=== PATIENT | male | born 1965 | race African-American/Black ===

== ENCOUNTER 2016-11-04 17:23 | Emergency (ER) | payer MEDICAID ==
[~2016-11-04] VITALS: Ht 172.7 cm; Wt 75.7 kg
[~2016-11-04 17:23] MED LIST: ALBUTEROL SULF8.5 GM INH; ATORVASTATIN CA10 MG ORAL; COLACE100 MG ORAL; DILANTIN100 MG ORAL; GLUCOPHAGE1000 MG ORAL; IBUPROFEN600 MG ORAL; JANUVIA50 MG ORAL; KEFLEX500 MG ORAL; LEVEMIR FL100 UNIT/1 SUBQ; METFORMIN HCL500 M1 ORAL; NAPROSYN500 M1 ORAL; NKM; NORCO 5-325 TA1 EACH ORAL; NOVOLOG100 UNITS1 SUBQ; PLAVIX75 MG ORAL; ROBAXIN-750750 MG PO; SENNA8.6 M3 PO; SEROQUEL25 MG ORAL; ZESTRIL10 M1 ORAL
[2016-11-04 17:39] VITALS: BP 123/69
--- NOTE | 2016-11-04 17:40 | Emergency Room Report ---
History of Present Illness General Chief Complaint: Pain Source: Patient Present Illness HPI Patient is a 51-year-old male presented after having increased diarrhea for the past 3 days. The patient reports having increased left-sided weakness. Patient reports having some difficulty with moving his left hand. Patient prior history of similar type symptoms. Had patient stated that he had onset of weakness about 3 hours ago. I have seen this patient several times in the past with similar complaints and intervals and history. Allergies: Coded Allergies: ACETAMINOPHEN (Unverified Allergy, Unknown, 04/02/15) IBUPROFEN (Unverified Allergy, Unknown, 12/04/14) KETOROLAC (Unverified Allergy, Unknown, 12/04/14) Patient History Past Medical History: see triage record Reviewed Nursing Documentation: PMH: Agreed, PSxH: Agreed Nursing Documentation-PMH Past Medical History: No History, Except For Hx Cardiac Problems: No Hx Hypertension: Yes Hx Pacemaker: No Hx Asthma: Yes Hx COPD: No Hx Diabetes: No Hx Cancer: No Hx Gastrointestinal Problems: No Hx Dialysis: No Hx Neurological Problems: No Hx Cerebrovascular Accident: Yes - 2-3 YRS AGO Hx Seizures: No Hx Weakness: Yes - right sided Review of Systems All Other Systems: negative except mentioned in HPI Physical Exam Vital Signs Date Time Temp Pulse Resp B/P Pulse Ox O2 Delivery O2 Flow Rate FiO2 11/04/16 17:33 97.0 91 19 98 Room Air Sp02 EP Interpretation: reviewed, normal General Appearance: normal inspection, well appearing, no apparent distress, alert, GCS 15 Head: atraumatic ENT: normal ENT inspection, hearing grossly normal, normal voice Neck: normal inspection, full range of motion, supple, no bony tend Respiratory: normal inspection, lungs clear, normal breath sounds, no respiratory distress, no retraction, no wheezing Cardiovascular #1: regular rate, rhythm, no edema Gastrointestinal: normal inspection, normal bowel sounds, non tender, soft, no guarding, no hernia Genitourinary: no CVA tenderness Musculoskeletal: normal inspection, back normal, normal range of motion Neurologic: normal inspection, alert, oriented x3, responsive, calculation reviewer III-XII nml as tested, motor strength/tone normal, speech normal Psychiatric: normal inspection, judgement/insight normal, mood/affect normal Skin: normal inspection, normal color, no rash Medical Decision Making Diagnostic Impression: Primary Impression: Diabetes mellitus Additional Impressions: Chronic pain Opioid dependence Dehydration ER Course The patient presented for weakness.Patient presented for generalized weakness. Differential diagnosis included was not limited to anemia, urinary tract infection, CVA, electrolyte abnormality, hypothyroidism, myocardial infarction , myasthenia gravis, dehydration, among others. Because of complexity of patient 's case laboratory testing and imaging studies were ordered.Patient was noted to have elevated blood sugar and was given oral metformin and as well as subcutaneous insulin. The patient had improvement in his blood sugar. The patient is advised to follow up with primary care doctor in 1-2 days. Patient is advised to return if any worsening condition or if any changes in status that are concerning. Labs Test 11/04/16 17:55 White Blood Count 5.4 K/UL (4.8-10.8) Red Blood Count 4.59 M/UL (4.70-6.10) Hemoglobin 12.4 G/DL (14.2-18.0) Hematocrit 38.2 % (42.0-52.0) Mean Corpuscular Volume 83 FL (80-99) Mean Corpuscular Hemoglobin 27.1 PG (27.0-31.0) Mean Corpuscular Hemoglobin Concent 32.6 G/DL (32.0-36.0) Red Cell Distribution Width 13.3 % (11.6-14.8) Platelet Count 175 K/UL (150-450) Mean Platelet Volume 5.9 FL (6.5-10.1) Neutrophils (%) (Auto) 45.3 % (45.0-75.0) Lymphocytes (%) (Auto) 39.9 % (20.0-45.0) Monocytes (%) (Auto) 11.7 % (1.0-10.0) Eosinophils (%) (Auto) 1.1 % (0.0-3.0) Basophils (%) (Auto) 2.1 % (0.0-2.0) Sodium Level 135 mEQ/L (135-145) Potassium Level 4.1 mEQ/L (3.4-4.9) Chloride Level 97 mEQ/L (98-107) Carbon Dioxide Level 21 mEQ/L (20-30) Anion Gap 17 (5-15) Blood Urea Nitrogen 8 mg/dL (7-23) Creatinine 0.8 mg/dL (0.7-1.2) Estimat Glomerular Filtration Rate > 60 mL/min (>60) Glucose Level 504 mg/dL (74-106) Calcium Level 8.7 mg/dL (8.6-10.2) Total Bilirubin < 0.2 mg/dL (0.0-1.2) Aspartate Amino Transf (AST/SGOT) 14 U/L (5-40) Alanine Aminotransferase (ALT/SGPT) 20 U/L (3-41) Alkaline Phosphatase 121 U/L (40-129) Troponin I < 0.30 ng/mL (<=0.30) Total Protein 6.0 g/dL (6.6-8.7) Albumin 3.4 g/dL (3.5-5.2) Globulin 2.6 g/dL Albumin/Globulin Ratio 1.3 (1.0-2.7) Lipase 49 U/L (< 60) Phenytoin (Dilantin) Level < 0.8 ug/mL (10-20) Last Vital Signs Date Time Temp Pulse Resp B/P Pulse Ox O2 Delivery O2 Flow Rate FiO2 11/04/16 17:33 97.0 91 19 98 Room Air Status: improved Disposition: HOME, SELF-CARE Condition: Stable Scripts Gabapentin* (NEURONTIN*) 400 Mg Capsule 400 MG ORAL TWICE A DAY, #30 CAP Prov: Eddie Capps 11/04/16 Eddie Capps Nov 04, 2016 17:40
[2016-11-04] MEDS ORDERED: Loperamide 2mg cap ORAL ONE (17:45)
[2016-11-04 18:05] LABS: BASOPHILS % (AUTO) 2.1 % (0.0-2.0); EOSINOPHILS % (AUTO) 1.1 % (0.0-3.0); LYMPHOCYTES % (AUTO) 39.9 % (20.0-45.0); MEAN CORPUSCULAR HEMOGLOBIN 27.1 PG (27.0-31.0); MEAN CORPUSCULAR HGB CONC 32.6 G/DL (32.0-36.0); MEAN CORPUSCULAR VOLUME 83 FL (80-99); MEAN PLATELET VOLUME 5.9 FL (6.5-10.1); MONOCYTES % (AUTO) 11.7 % (1.0-10.0); NEUTROPHILS % (AUTO) 45.3 % (45.0-75.0); PLATELET COUNT 175 K/UL (150-450); RED BLOOD COUNT 4.59 M/UL (4.70-6.10); RED CELL DISTRIBUTION WIDTH 13.3 % (11.6-14.8); WHITE BLOOD COUNT 5.4 K/UL (4.8-10.8)
[2016-11-04 18:31] LABS: TROPONIN I < 0.30 ng/mL (<=0.30)
[2016-11-04 18:39] LABS: ALANINE AMINOTRANSFERASE 20 U/L (3-41); ALBUMIN/GLOBULIN RATIO 1.3 (1.0-2.7); ANION GAP 17 (5-15); ASPARTATE AMINO TRANSFERASE 14 U/L (5-40); CALCIUM 8.7 mg/dL (8.6-10.2); CARBON DIOXIDE 21 mEQ/L (20-30); CHLORIDE 97 mEQ/L (98-107); CREATININE 0.8 mg/dL (0.7-1.2); GLOMERULAR FILTRATION RATE > 60 mL/min (>60); HEMOLYSIS 6; LIPASE 49 U/L (< 60); POTASSIUM 4.1 mEQ/L (3.4-4.9); SODIUM 135 mEQ/L (135-145)
[2016-11-04] MEDS ORDERED: NEURONTIN400 MG ORAL (18:44)
[2016-11-04] MEDS ORDERED: metFORMIN 500mg tab ORAL SCH (19:00)
[2016-11-04 19:25] VITALS: BP 132/73
[2016-11-04 19:39] VITALS: BP 132/73
--- NOTE | 2016-11-05 12:16 | Cardiology Report ---
APPROVED REPORT EKG Measurement Heart [id number] Normal sinus rhythm Possible Left atrial enlargement Borderline ECG
== END 2016-11-04 19:40 | disposition home or self-care (01) ==
LOC: EMR 17:45
DX: R19.7 Diarrhea, unspecified (principal); R53.1 Weakness; Z88.6 Allergy status to analgesic agent; Z88.8 Allergy status to other drugs, medicaments and biological substances; I10 Essential (primary) hypertension; J45.909 Unspecified asthma, uncomplicated; Z86.73 Personal history of transient ischemic attack (TIA), and cerebral infarction without residual deficits; E11.9 Type 2 diabetes mellitus without complications; G89.29 Other chronic pain; F11.20 Opioid dependence, uncomplicated; E86.0 Dehydration
CPT/HCPCS: 36415; 80053; 80185; 83690; 84484; 85025; 93005; 96372; 99283; J1815

== ENCOUNTER → 2017-01-02 | Emergency (ER) | payer MEDICAID ==
[~2017-01-02] VITALS: Ht 172.7 cm; Wt 74.8 kg
[~2017-01-02] MED LIST changes: +NEURONTIN400 MG ORAL
[2017-01-02 14:35] VITALS: BP 120/71
[2017-01-02 15:40] LABS: APPEARANCE,URINE CLEAR; KETONES,URINE NEGATIVE (NEGATIVE); LEUKOCYTE ESTERASE ,URINE NEGATIVE (NEGATIVE); NITRITE,URINE NEGATIVE (NEGATIVE); PH,URINE 6 (4.5-8.0); PROTEIN,URINE 2+ (NEGATIVE); UROBILINOGEN,URINE 1 MG/DL (0.0-1.0)
[2017-01-02 15:55] LABS: RBC,URINE 0-2 /HPF (0 - 0); WBC,URINE 0-2 /HPF (0 - 0)
[2017-01-02 15:56] LABS: BACTERIA,URINE OCCASIONAL /HPF
--- NOTE | 2017-01-02 21:49 | Emergency Room Report ---
History of Present Illness General Chief Complaint: Pain Source: Patient Present Illness HPI 51 YO male presents emergency department complaining of 10 out of 10 in severity localized left sided flank pain and yesterday. Patient states it feels as though someone is consistently punching him. Patient reports significant tenderness denies fall or trauma. Patient denies abdominal pain nausea, vomiting, fevers, chills, hematuria, dysuria. Patient states the pain is localized it does not migrate. Patient denies bruising, erythema or rash. Pt states pain is exacerbated with drinking water. denies strenuous activities. Patient denies taking medication for his pain states she has multiple allergies. Denies numbness tingling or loss of sensation or gross motor movements of the extremities, incontinence of bowel or bladder. Denies CP, Palpitations, LOC, AMS, dizziness, Changes in Vision, Sensation, paresthesias, or a sudden severe headache. Allergies: Coded Allergies: ACETAMINOPHEN (Unverified Allergy, Unknown, 04/02/15) IBUPROFEN (Unverified Allergy, Unknown, 12/04/14) KETOROLAC (Unverified Allergy, Unknown, 12/04/14) Patient History Past Medical History: see triage record Past Surgical History: none Pertinent Family History: none Reviewed Nursing Documentation: PMH: Agreed, PSxH: Agreed Nursing Documentation-PMH Past Medical History: No History, Except For Hx Cardiac Problems: No Hx Hypertension: Yes Hx Pacemaker: No Hx Asthma: Yes Hx COPD: No Hx Diabetes: No Hx Cancer: No Hx Gastrointestinal Problems: No Hx Dialysis: No Hx Neurological Problems: No Hx Cerebrovascular Accident: Yes - 2-3 YRS AGO Hx Seizures: No Hx Weakness: Yes - right sided Review of Systems All Other Systems: negative except mentioned in HPI Physical Exam Vital Signs Date Time Temp Pulse Resp B/P Pulse Ox O2 Delivery O2 Flow Rate FiO2 01/02/17 14:35 98.6 82 15 120/71 95 Room Air Sp02 EP Interpretation: reviewed, normal General Appearance: no apparent distress, alert, GCS 15, non-toxic Head: normocephalic, atraumatic Eyes: bilateral eye PERRL, bilateral eye normal inspection ENT: hearing grossly normal, normal pharynx, no angioedema, normal voice Neck: full range of motion, supple/symm/no masses Respiratory: lungs clear, normal breath sounds, speaking full sentences Cardiovascular #1: regular rate, rhythm, no edema Gastrointestinal: normal bowel sounds, non tender, soft, non-distended, no guarding, no rebound Rectal: deferred Genitourinary: normal inspection, no CVA tenderness Musculoskeletal: back normal, gait/station normal, normal range of motion, tender - superficial ttp to light palpation of the left lower flank/rib area, no obvious deformities, no bruising, no erythema Neurologic: alert, oriented x3, responsive, motor strength/tone normal, sensory intact, speech normal Skin: normal color, no rash, warm/dry, well hydrated Medical Decision Making PA Attestation Dr. Capps is my supervising Physician whom patient management has been discussed with. Diagnostic Impression: Primary Impression: eloped ER Course 51 YO male presents emergency department complaining of 10 out of 10 in severity localized left sided flank pain and yesterday. Patient states it feels as though someone is consistently punching him. Patient reports significant tenderness denies fall or trauma. Patient denies abdominal pain nausea, vomiting, fevers, chills, hematuria, dysuria. Patient states the pain is localized it does not migrate. Patient denies bruising, erythema or rash. Patient denies taking medication for his pain states she has multiple allergies. Ddx considered but are not limited to Diverticulitis, acute appy, diarrhea,UC, PUD, GE, pancreatitis, gallstone, kidney stone, pyelonephritis, UTI, obstruction. Vital signs: are WNL, pt. is afebrile H&PE are most consistent with possible muscle strain due to superficial ttp to light palpation. ORDERS: - UA: Pending ED INTERVENTIONS: -- Pt declines Aspirin PO DISPOSITION: PT. ELOPED Labs Test 01/02/17 15:19 Urine Color Yellow Urine Appearance Clear Urine pH 6 (4.5-8.0) Urine Specific [place] 1.015 (1.005-1.035) Urine Protein 2+ (NEGATIVE) Urine Glucose (UA) 4+ (NEGATIVE) Urine Ketones Negative (NEGATIVE) Urine Occult Blood Negative (NEGATIVE) Urine Nitrite Negative (NEGATIVE) Urine Bilirubin Negative (NEGATIVE) Urine Urobilinogen 1 MG/DL (0.0-1.0) Urine Leukocyte Esterase Negative (NEGATIVE) Urine RBC 0-2 /HPF (0 - 0) Urine WBC 0-2 /HPF (0 - 0) Urine Squamous Epithelial Cells None /LPF (NONE/OCC) Urine Bacteria Occasional /HPF (NONE) Last Vital Signs Date Time Temp Pulse Resp B/P Pulse Ox O2 Delivery O2 Flow Rate FiO2 01/02/17 14:35 98.6 82 15 120/71 95 Room Air Disposition: ELOPED Condition: Unknown Referrals: NON PHYSICIAN (PCP) Corinne Carroll Jan 02, 2017 21:49
== END | disposition left against medical advice (07) ==
LOC: EMR 14:51
DX: R10.9 Unspecified abdominal pain (principal); I10 Essential (primary) hypertension; J45.909 Unspecified asthma, uncomplicated; Z86.73 Personal history of transient ischemic attack (TIA), and cerebral infarction without residual deficits; Z88.6 Allergy status to analgesic agent
CPT/HCPCS: 81003; 99282

== ENCOUNTER 2017-04-13 19:59 | Emergency (ER) | payer MEDICAID ==
[~2017-04-13] VITALS: Ht 172.7 cm; Wt 75.7 kg
[2017-04-13 21:11] LABS: EOSINOPHILS % (AUTO) 1.1 % (0.0-3.0); LYMPHOCYTES % (AUTO) 38.1 % (20.0-45.0); MEAN CORPUSCULAR HEMOGLOBIN 27.6 PG (27.0-31.0); MEAN CORPUSCULAR HGB CONC 32.5 G/DL (32.0-36.0); MEAN CORPUSCULAR VOLUME 85 FL (80-99); MEAN PLATELET VOLUME 6.6 FL (6.5-10.1); MONOCYTES % (AUTO) 7.1 % (1.0-10.0); NEUTROPHILS % (AUTO) 52.7 % (45.0-75.0); PLATELET COUNT 218 K/UL (150-450); RED BLOOD COUNT 4.77 M/UL (4.70-6.10); RED CELL DISTRIBUTION WIDTH 12.8 % (11.6-14.8); WHITE BLOOD COUNT 5.5 K/UL (4.8-10.8)
[2017-04-13 21:21] LABS: ALANINE AMINOTRANSFERASE 15 U/L (3-41); ALBUMIN/GLOBULIN RATIO 1.3 (1.0-2.7); ANION GAP 15 (5-15); ASPARTATE AMINO TRANSFERASE 10 U/L (5-40); CARBON DIOXIDE 22 mEQ/L (20-30); CHLORIDE 97 mEQ/L (98-107); GLOMERULAR FILTRATION RATE > 60 mL/min (>60); HEMOLYSIS 6; POTASSIUM 4.1 mEQ/L (3.4-4.9); SODIUM 134 mEQ/L (135-145); TOTAL PROTEIN 6.7 g/dL (6.6-8.7)
[2017-04-13 21:56] VITALS: BP 117/70
[2017-04-13] MEDS ORDERED: GLUCOPHAGE1000 MG ORAL (21:57)
[2017-04-13 22:10] VITALS: BP 112/73
[2017-04-13 22:12] VITALS: BP 105/58
[2017-04-13 22:15] VITALS: BP 109/56
[2017-04-13 22:20] VITALS: BP 109/56
--- NOTE | 2017-04-14 08:26 | Diagnostic Imaging Report ---
Indications: Mental status Technique: Continuous helical CT imaging of the brain was performed with automatic exposure control on a Siemens sensation [address] scanner. Axial and coronal images were reconstructed at 5 mm slice thickness and interval. CTDI volume(s): 70 mGy Total DLP: 1494 mGy-cm Findings: Comparison: None. Ventricles, cisterns, sulci are mildly prominent.. No evidence of mass or hemorrhage, other attenuation abnormality, mass effect, midline shift, hydrocephalus or increased intracranial pressure. Bone window images are unremarkable. Visualized paranasal sinuses and mastoid air cells are clear. Posterior parietal scalp focally swollen and increased attenuation. No associated gas or foreign body. IMPRESSION: Posterior parietal scalp hematoma No other evidence of acute injury or other acute pathology. Mild atrophy, prominent for age This correlates with Dr. Coyle's preliminary report. The CT scanner at [facility] is accredited by the [employer] and the scans are performed using protocols designed to limit radiation exposure to as low as reasonably achievable to attain images of sufficient resolution adequate for diagnostic evaluation.
--- NOTE | 2017-04-15 04:45 | Emergency Room Report ---
History of Present Illness General Chief Complaint: General Complaint Source: Patient Present Illness HPI Patient is a 51-year-old male who presented after increased headache as well as reported a left-sided weakness. Patient prior history of diabetes. He reportedly had been feeling somewhat dizzy. He reported having a recent fall. Patient stated that he had been having increased lower extremity pain. Allergies: Coded Allergies: ACETAMINOPHEN (Unverified Allergy, Unknown, 04/02/15) IBUPROFEN (Unverified Allergy, Unknown, 12/04/14) KETOROLAC (Unverified Allergy, Unknown, 12/04/14) Patient History Past Medical History: DM, HTN Reviewed Nursing Documentation: PMH: Agreed, PSxH: Agreed Nursing Documentation-PMH Past Medical History: No History, Except For Hx Cardiac Problems: No Hx Hypertension: Yes Hx Pacemaker: No Hx Asthma: Yes Hx COPD: No Hx Diabetes: No Hx Cancer: No Hx Gastrointestinal Problems: No Hx Dialysis: No Hx Neurological Problems: No Hx Cerebrovascular Accident: Yes - 2-3 YRS AGO Hx Seizures: No Hx Weakness: Yes - right sided Review of Systems All Other Systems: negative except mentioned in HPI Physical Exam Vital Signs Date Time Temp Pulse Resp B/P Pulse Ox O2 Delivery O2 Flow Rate FiO2 04/13/17 20:32 98.4 99 16 103/68 99 Room Air Sp02 EP Interpretation: reviewed, normal General Appearance: normal inspection, well appearing, no apparent distress, alert, GCS 15, non-toxic Head: other - soft tissue scalp swelling ENT: normal ENT inspection, hearing grossly normal, normal voice Neck: normal inspection, full range of motion, supple, no bony tend Respiratory: normal inspection, lungs clear, normal breath sounds, no respiratory distress, no retraction, no wheezing Cardiovascular #1: regular rate, rhythm, no edema Gastrointestinal: normal inspection, normal bowel sounds, non tender, soft, no guarding, no hernia Genitourinary: no CVA tenderness Musculoskeletal: normal inspection, back normal, normal range of motion Neurologic: normal inspection, alert, oriented x3, responsive, grain elevator clerk III-XII nml as tested, motor strength/tone normal, speech normal Psychiatric: normal inspection, judgement/insight normal, mood/affect normal Skin: normal inspection, normal color, no rash Medical Decision Making Diagnostic Impression: Primary Impression: Hyperglycemia Additional Impression: Dehydration ER Course Patient presented for generalized weakness. Differential diagnosis included was not limited to anemia, urinary tract infection, electrolyte abnormality, hypothyroidism, hyperglycemia, myocardial infarction, myasthenia gravis, dehydration, among others. Because of complexity of patient's case laboratory testing and imaging studies were ordered. CT the head was ordered due to patient's complaints and recent trauma. CT the head read by radiologist showed no evidence of acute CVA. There is soft tissue swelling to the scalp. Patient was given IV fluids as well as insulin for hyperglycemia. The patient had some improvement in his weakness after rehydration. The patient is advised to follow up with primary care doctor in 1 -2 days. Patient is advised to return if any worsening condition or if any changes in status that are concerning. Labs Test 04/13/17 21:00 White Blood Count 5.5 K/UL (4.8-10.8) Red Blood Count 4.77 M/UL (4.70-6.10) Hemoglobin 13.2 G/DL (14.2-18.0) Hematocrit 40.5 % (42.0-52.0) Mean Corpuscular Volume 85 FL (80-99) Mean Corpuscular Hemoglobin 27.6 PG (27.0-31.0) Mean Corpuscular Hemoglobin Concent 32.5 G/DL (32.0-36.0) Red Cell Distribution Width 12.8 % (11.6-14.8) Platelet Count 218 K/UL (150-450) Mean Platelet Volume 6.6 FL (6.5-10.1) Neutrophils (%) (Auto) 52.7 % (45.0-75.0) Lymphocytes (%) (Auto) 38.1 % (20.0-45.0) Monocytes (%) (Auto) 7.1 % (1.0-10.0) Eosinophils (%) (Auto) 1.1 % (0.0-3.0) Basophils (%) (Auto) 1.0 % (0.0-2.0) Sodium Level 134 mEQ/L (135-145) Potassium Level 4.1 mEQ/L (3.4-4.9) Chloride Level 97 mEQ/L (98-107) Carbon Dioxide Level 22 mEQ/L (20-30) Anion Gap 15 (5-15) Blood Urea Nitrogen 13 mg/dL (7-23) Creatinine 1.0 mg/dL (0.7-1.2) Estimat Glomerular Filtration Rate > 60 mL/min (>60) Glucose Level 579 mg/dL (74-106) Calcium Level 9.0 mg/dL (8.6-10.2) Total Bilirubin < 0.2 mg/dL (0.0-1.2) Aspartate Amino Transf (AST/SGOT) 10 U/L (5-40) Alanine Aminotransferase (ALT/SGPT) 15 U/L (3-41) Alkaline Phosphatase 137 U/L (40-129) Total Protein 6.7 g/dL (6.6-8.7) Albumin 3.9 g/dL (3.5-5.2) Globulin 2.8 g/dL Albumin/Globulin Ratio 1.3 (1.0-2.7) Last Vital Signs Date Time Temp Pulse Resp B/P Pulse Ox O2 Delivery O2 Flow Rate FiO2 04/13/17 22:20 98.4 82 16 109/56 99 Room Air Status: improved Disposition: HOME, SELF-CARE Condition: Stable Scripts Metformin Hcl (GLUCOPHAGE) 1,000 Mg Tablet 500 MG ORAL TID, #90 TAB Prov: Eddie Capps 04/13/17 Patient Instructions: Hyperglycemia Eddie Capps Apr 15, 2017 04:45
== END 2017-04-13 22:16 | disposition home or self-care (01) ==
LOC: EMR 21:05
DX: R73.9 Hyperglycemia, unspecified (principal); E86.0 Dehydration; I10 Essential (primary) hypertension; J45.909 Unspecified asthma, uncomplicated; Z88.6 Allergy status to analgesic agent; Z86.73 Personal history of transient ischemic attack (TIA), and cerebral infarction without residual deficits; M79.81 Nontraumatic hematoma of soft tissue
CPT/HCPCS: 36415; 70450; 80053; 85025; 93005; 96374; 96375

== ENCOUNTER 2017-11-15 16:09 | Emergency (ER) | payer MEDICAID ==
[2017-11-15] VITALS (12 sets, daily range): BP systolic 113–125; BP diastolic 63–103
[~2017-11-15] VITALS: Ht 172.7 cm; Wt 69.9 kg
[2017-11-15] MEDS ORDERED: ASPIRIN-LOW81 MG (17:27)
[2017-11-15] MEDS ORDERED: Alteplase 100mg Inj IV ONE (18:00)
[2017-11-15] MEDS ORDERED: WATER STERILE IVPB ONE (18:00)
[2017-11-15] MEDS ORDERED: ALTEPLASE IVPB ONE (18:00)
[2017-11-15 18:12] LABS: BASOPHILS % (AUTO) 1.3 % (0.0-2.0); EOSINOPHILS % (AUTO) 1.6 % (0.0-3.0); HEMATOCRIT 38.9 % (42.0-52.0); HEMOGLOBIN 13.1 G/DL (14.2-18.0); LYMPHOCYTES % (AUTO) 49.7 % (20.0-45.0); MEAN CORPUSCULAR VOLUME 83 FL (80-99); NEUTROPHILS % (AUTO) 40.5 % (45.0-75.0); PLATELET COUNT 198 K/UL (150-450); RED BLOOD COUNT 4.71 M/UL (4.70-6.10); RED CELL DISTRIBUTION WIDTH 12.2 % (11.6-14.8); WHITE BLOOD COUNT 4.1 K/UL (4.8-10.8)
[2017-11-15 18:27] LABS: ANION GAP 7 mmol/L (5-15); BLOOD UREA NITROGEN 12 mg/dL (7-18); CALCIUM 9.6 MG/DL (8.5-10.1); CARBON DIOXIDE 28 MMOL/L (21-32); CHLORIDE 104 MMOL/L (98-107); CREATININE 0.9 MG/DL (0.55-1.30); POTASSIUM 3.4 MMOL/L (3.5-5.1); SODIUM 139 MMOL/L (136-145)
[2017-11-15 18:28] LABS: INR 0.9 (0.9-1.1)
[2017-11-15 18:31] LABS: ALANINE AMINOTRANSFERASE 25 U/L (12-78); ALBUMIN 3.4 G/DL (3.4-5.0); ALBUMIN/GLOBULIN RATIO 0.9 (1.0-2.7); ALKALINE PHOSPHATASE 130 U/L (46-116); ASPARTATE AMINO TRANSFERASE 13 U/L (15-37); BILIRUBIN,TOTAL 0.2 MG/DL (0.2-1.0); CHOLESTEROL 149 MG/DL (< 200); HDL CHOLESTEROL 63 MG/DL (40-60); TRIGLYCERIDES 73 MG/DL (30-150)
[2017-11-15] MEDS ORDERED: Morphine Sulfate 4mg/ml Inj IVP ONE (19:00)
[2017-11-15] MEDS ORDERED: HYDROmorphone 1mg/ml Carpuject IVP ONE (20:30)
--- NOTE | 2017-11-15 21:35 | Emergency Room Report ---
History of Present Illness General Chief Complaint: General Complaint Source: Patient Present Illness HPI 52-year-old male presents ED for evaluation. Patient complaining of left-sided weakness. Started proximally one hour prior to arrival. States she fell because of weakness. Denies chest pain or shortness of breath. Has history of prior stroke. Denies slurred speech or facial droop. Denies any drug use. No other aggravating or relieving factors. Denies any other associated symptoms Allergies: Coded Allergies: ACETAMINOPHEN (Unverified Allergy, Unknown, 04/02/15) IBUPROFEN (Unverified Allergy, Unknown, 12/04/14) KETOROLAC (Unverified Allergy, Unknown, 12/04/14) Patient History Past Medical History: HTN, asthma, CVA/TIA Past Surgical History: none Pertinent Family History: none Social History: Denies: smoking, alcohol use, drug use Immunizations: UTD Reviewed Nursing Documentation: PMH: Agreed, PSxH: Agreed Nursing Documentation-PMH Hx Cardiac Problems: No Hx Hypertension: Yes Hx Pacemaker: No Hx Asthma: Yes Hx COPD: No Hx Diabetes: No Hx Cancer: No Hx Gastrointestinal Problems: No Hx Dialysis: No Hx Neurological Problems: No Hx Cerebrovascular Accident: Yes - 2-3 YRS AGO Hx Seizures: No Hx Weakness: Yes - right sided Review of Systems All Other Systems: negative except mentioned in HPI Physical Exam Vital Signs Date Time Temp Pulse Resp B/P (MAP) Pulse Ox O2 Delivery O2 Flow Rate FiO2 11/15/17 16:13 97.9 88 18 108/60 97 Room Air Sp02 EP Interpretation: reviewed, normal General Appearance: no apparent distress, alert, GCS 15, non-toxic Head: normocephalic Eyes: bilateral eye normal inspection, bilateral eye PERRL ENT: normal ENT inspection Neck: normal inspection Respiratory: chest non-tender, lungs clear, normal breath sounds, speaking full sentences Cardiovascular #1: regular rate, rhythm, no edema Gastrointestinal: normal bowel sounds, non tender, soft, non-distended, no guarding, no rebound Rectal: deferred Genitourinary: no CVA tenderness Musculoskeletal: back normal, gait/station normal, non-tender Neurologic: alert, oriented x3, responsive, party plan sales host/hostess III-XII nml as tested, sensory intact, speech normal, motor weakness - LUE 3/5, LLE 2/5, sensory deficit - LUE and LLE Psychiatric: normal inspection Skin: normal inspection Lymphatic: normal inspection Procedures Critical Care Time Critical Care Time i. I feel this is a highly complex case requiring extensive working including EKG/Rhythm strip, Xray/CT/US, Blood/urine lab work, repeat exams while in ED, and administration of strong opiates/narcotics for pain control, admission to hospital or close patient follow up. Total time: 30 min bedside evaluation and treatment excludes procedures (EKG). Reason for critical care: CVA Possible complications: hypotension, hypertension, HI, shock, arrhythmias, metabolic acidosis, end organ damage, respiratory failure. Interventions: Labs, IV fluids, EKG, chest x-ray, CT head. TPA. Consultation with stroke team. CTA brain Course: patient presenting with left-sided weakness one hour prior to arrival. CT negative. Stroke scale of 6. Discussed case with stroke team at [facility] and recommended to TPA. CTA of brain shows no large vessel disease. On reassessment strength in the LUE and LLE improving Consultations: nursing staff, EMS, family Performed by: Dr Lindsay Tolerated well condition = critical j. because of unstable vital signs this patient had a condition that could potentially threaten life or limb. I feel this is a critical patient who required my full attention while patient was considered critical. Total Critical Care Time excluding procedures was greater than 35 minutes Medical Decision Making Diagnostic Impression: Primary Impression: CVA (cerebral infarction) ER Course Hospital Course 52-year-old male presents ED with left upper extremity left lower extremity weakness Differential diagnoses include: HI/unstable angina, SVT/Vtach/AFib, CVA/TIA Clinical course Patient placed on stretcher. on registered nurse cardiac telemetry. After initial history and physical I ordered labs, EKG, chest x-ray, and CT head labs reviewed- electrolytes ok, troponins negative, no leukocytosis, Hb/Hct stable Chest x-ray- no acute process CT brain - no acute process noted NIHSS 6. patient within therapeutic window. Discussed case with Dr Shelley at [facility]. Recommend giving TPA bolus and infusion. Also recommended CTA CTA shows no large vessel disease. On reassessment LUE and LLE weakness improving. Patient will be transferred to [facility]. I feel this is a highly complex case requiring extensive working including EKG/Rhythm strip, Xray/CT/US, Blood/urine lab work, repeat exams while in ED, and administration of strong opiates/narcotics for pain control, admission to hospital or close patient follow up. Diagnosis - CVA transferred in critical condition Labs Test 11/15/17 17:45 White Blood Count 4.1 K/UL (4.8-10.8) Red Blood Count 4.71 M/UL (4.70-6.10) Hemoglobin 13.1 G/DL (14.2-18.0) Hematocrit 38.9 % (42.0-52.0) Mean Corpuscular Volume 83 FL (80-99) Mean Corpuscular Hemoglobin 27.7 PG (27.0-31.0) Mean Corpuscular Hemoglobin Concent 33.5 G/DL (32.0-36.0) Red Cell Distribution Width 12.2 % (11.6-14.8) Platelet Count 198 K/UL (150-450) Mean Platelet Volume 6.7 FL (6.5-10.1) Neutrophils (%) (Auto) 40.5 % (45.0-75.0) Lymphocytes (%) (Auto) 49.7 % (20.0-45.0) Monocytes (%) (Auto) 7.0 % (1.0-10.0) Eosinophils (%) (Auto) 1.6 % (0.0-3.0) Basophils (%) (Auto) 1.3 % (0.0-2.0) Prothrombin Time 9.7 SEC (9.30-11.50) Prothromb Time International Ratio 0.9 (0.9-1.1) Activated Partial Thromboplast Time 24 SEC (23-33) Sodium Level 139 MMOL/L (136-145) Potassium Level 3.4 MMOL/L (3.5-5.1) Chloride Level 104 MMOL/L (98-107) Carbon Dioxide Level 28 MMOL/L (21-32) Anion Gap 7 mmol/L (5-15) Blood Urea Nitrogen 12 mg/dL (7-18) Creatinine 0.9 MG/DL (0.55-1.30) Estimat Glomerular Filtration Rate > 60 mL/min (>60) Glucose Level 243 MG/DL (74-106) Calcium Level 9.6 MG/DL (8.5-10.1) Total Bilirubin 0.2 MG/DL (0.2-1.0) Aspartate Amino Transf (AST/SGOT) 13 U/L (15-37) Alanine Aminotransferase (ALT/SGPT) 25 U/L (12-78) Alkaline Phosphatase 130 U/L (46-116) Troponin I 0.000 ng/mL (0.000-0.056) Total Protein 7.3 G/DL (6.4-8.2) Albumin 3.4 G/DL (3.4-5.0) Globulin 3.9 g/dL Albumin/Globulin Ratio 0.9 (1.0-2.7) Triglycerides Level 73 MG/DL (30-150) Cholesterol Level 149 MG/DL (< 200) LDL Cholesterol 77 mg/dL (<100) HDL Cholesterol 63 MG/DL (40-60) Cholesterol/HDL Ratio 2.4 (3.3-4.4) EKG Diagnostic Results Rate: normal Rhythm: NSR ST Segments: no acute changes ASA given to the pt in ED: No Rhythm Strip Diag. Results EP Interpretation: yes Rhythm: NSR, no PVC's, no ectopy Chest X-Ray Diagnostic Results Chest X-Ray Diagnostic Results : Chest X-Ray Ordered: Yes # of Views/Limited/Complete: 1 View Indication: Chest Pain EP Interpretation: Yes Interpretation: no consolidation, no effusion, no pneumothorax, no acute cardiopulmonary disease Impression: No acute disease Electronically Signed by: Electronically signed by Ezio Lindsay MD CT/MRI/US Diagnostic Results CT/MRI/US Diagnostic Results #1: Imaging Test Ordered: CT Brain Impression no acute process CT/MRI/US Diagnostic Results #2: Imaging Test Ordered: CTA Brain Impression no acute process Last Vital Signs Date Time Temp Pulse Resp B/P (MAP) Pulse Ox O2 Delivery O2 Flow Rate FiO2 11/15/17 21:15 97.8 82 11 113/71 100 Room Air Status: improved Disposition: XFER [facility] Condition: Critical Referrals: NOT CHOSEN IPA/,REFERRING (PCP) EZIO LINDSAY M.D. Nov 15, 2017 21:35
--- NOTE | 2017-11-16 09:38 | Diagnostic Imaging Report ---
Indication: Stroke Technique: XRAY Chest 1v Comparison: 06/18/2016 Findings: Heart size and mediastinal contours are within normal limits. There is no focal consolidation, pneumothorax or pleural effusion. Osseous structures demonstrate no acute abnormality. Impression: No radiographic evidence of acute cardiopulmonary disease.
--- NOTE | 2017-11-16 11:24 | Diagnostic Imaging Report ---
Indication: Stroke Technique: Continuous helical CT scanning of the head was performed utilizing automated exposure control without intravenous contrast material. Axial and coronal reconstructions were obtained. Comparison: 04/13/2017 CT dose: Total DLP 1456.66 mGycm; CTDI vol 70.38 mGy Findings: There is no acute intracranial hemorrhage, mass effect or cortical edema. The ventricles, cisterns and sulci are mildly prominent consistent with mild atrophy. Visualized mastoid air cells and paranasal sinuses are unremarkable. No focal lesions of the bony calvarium or soft tissues of the scalp are seen. IMPRESSION: No evidence of acute intracranial hemorrhage, mass effect or cortical edema. MRI may be obtained for more sensitive evaluation as clinically indicated. This corresponds with the statrad preliminary report. The CT scanner at [facility] is accredited by the [employer] and the scans are performed using protocols designed to limit radiation exposure to as low as reasonably achievable to attain images of sufficient resolution adequate for diagnostic evaluation.
--- NOTE | 2017-11-16 11:34 | Diagnostic Imaging Report ---
Indication: Upper shoulder weakness. Rule out stroke. Technique: CT angiogram of the head performed utilizing automated exposure control with intravenous contrast. Maximum intensity projections created. CT dose: Total DLP 2285.37 mGycm; CTDI vol 54.98,54.98 mGy Comparison: Correlation made to concurrent head CT. Findings: There is no acute intracranial hemorrhage, mass effect or cortical edema. Atherosclerotic calcifications noted in the cavernous portions of the left internal carotid artery. There is no central occlusion related to the [place]. Imaged portions of the carotid artery are patent. There is no aneurysm, stenosis or occlusion. Middle cerebral and anterior cerebral arteries are patent as are their large branch vessels. Bilateral vertebral arteries are patent. Basilar artery is patent. Posterior cerebral arteries are patent. There is hypoplastic left P1 segment with origin of the posterior cerebral artery via the left posterior communicating artery. There is a probable small left frontal venous angioma versus vascular malformation. IMPRESSION: No large vessel occlusion, significant stenosis, or aneurysm. Probable small left frontal venous angioma versus vascular malformation. This corresponds with the statrad preliminary report. The CT scanner at [facility] is accredited by the [employer] and the scans are performed using protocols designed to limit radiation exposure to as low as reasonably achievable to attain images of sufficient resolution adequate for diagnostic evaluation.
--- NOTE | 2017-11-17 15:16 | Cardiology Report ---
APPROVED REPORT EKG Measurement Heart [id number] Normal sinus rhythm Rightward axis Borderline ECG
== END 2017-11-15 22:20 | disposition short-term general hospital (02) ==
LOC: EMR 16:50
DX: I63.9 Cerebral infarction, unspecified (principal); G81.94 Hemiplegia, unspecified affecting left nondominant side; Z88.6 Allergy status to analgesic agent; Z88.8 Allergy status to other drugs, medicaments and biological substances; I10 Essential (primary) hypertension; J45.909 Unspecified asthma, uncomplicated
CPT/HCPCS: 36415; 70450; 70496; 71045; 80053; 80061; 84484; 85025; 85610; 85730; 93005; 96365; 96375; 99291; J1170; J2270; J2997; Q9967; 96374; J2405

== ENCOUNTER 2017-11-27 03:49 | Inpatient (IN) | payer MEDICAID ==
[~2017-11-27] VITALS: Ht 172.7 cm; Wt 69.4 kg
[~2017-11-27 03:49] MED LIST changes: +ASPIRIN-LOW81 MG
[2017-11-27] MEDS ORDERED: HYDROmorphone 1mg/ml Carpuject IVP ONE ×2 (04:15→05:45)
[2017-11-27 04:30] VITALS: BP 138/84
[2017-11-27 04:57] LABS: BASOPHILS % (AUTO) 0.8 % (0.0-2.0); EOSINOPHILS % (AUTO) 0.5 % (0.0-3.0); HEMATOCRIT 53.6 % (42.0-52.0); HEMOGLOBIN 17.6 G/DL (14.2-18.0); LYMPHOCYTES % (AUTO) 28.8 % (20.0-45.0); MEAN CORPUSCULAR VOLUME 83 FL (80-99); PLATELET COUNT 221 K/UL (150-450); RED BLOOD COUNT 6.48 M/UL (4.70-6.10); RED CELL DISTRIBUTION WIDTH 12.7 % (11.6-14.8); WHITE BLOOD COUNT 5.8 K/UL (4.8-10.8)
[2017-11-27 05:10] LABS: INR 0.9 (0.9-1.1)
[2017-11-27 05:22] LABS: ALANINE AMINOTRANSFERASE 51 U/L (12-78); ALBUMIN 4.4 G/DL (3.4-5.0); ALBUMIN/GLOBULIN RATIO 0.8 (1.0-2.7); ALKALINE PHOSPHATASE 197 U/L (46-116); ANION GAP 12 mmol/L (5-15); ASPARTATE AMINO TRANSFERASE 34 U/L (15-37); BILIRUBIN,TOTAL 0.8 MG/DL (0.2-1.0); BLOOD UREA NITROGEN 18 mg/dL (7-18); CALCIUM 10.2 MG/DL (8.5-10.1); CARBON DIOXIDE 26 MMOL/L (21-32); CHLORIDE 97 MMOL/L (98-107); CREATINE KINASE 186 U/L (26-308); CREATININE 0.8 MG/DL (0.55-1.30); POTASSIUM 5.1 MMOL/L (3.5-5.1); SODIUM 135 MMOL/L (136-145)
[2017-11-27] MEDS ORDERED: HYDROmorphone 1mg/ml Carpuject IM ONE (05:30)
[2017-11-27 05:54] VITALS: BP 148/88
[2017-11-27 06:26] VITALS: BP 126/78
--- NOTE | 2017-11-27 06:27 | Emergency Room Report ---
History of Present Illness General Chief Complaint: Generalized Weakness Source: Patient Present Illness HPI Patient had a syncopal episode after going home from work. He was feeling hungry. He woke up on the kitchen floor when his roommate was shaking him. He hit his left hip and is complaining about left hip pain. Pain reported 10/10, constant, more with palpation, minimal radiation to lower back, aching. Lastly he received TPA for a possible stroke and was transferred to [facility]. He states no MRI or other further treatment was done at that time. He had left hip pain at that time also. He has had multiple presentations for unilateral weakness in the past. Allegedly he had a stroke in 2012 and has minimal residual R weakness. Diabetic - poor compliance. S/P stent Smoker. Denies NVD, cough, chest pain, dysuria, rashes, headache. Alleges some sexual dysfunction. Takes [place] so allegations of acetaminophen allergy is incorrect. Admitted 11/2015 with d/c diagnoses: 1. Left-sided numbness with muscle weakness, possible TIA 2. Conversion reaction versus acute stroke, acute stroke was ruled out. 3. Diabetes mellitus, out of control. 4. History of cerebrovascular accident with right-sided weakness. 5. Hypertension. 6. History of drug abuse. 7. Mild dysphagia. 8. 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 Reviewed Nursing Documentation: PMH: Agreed, PSxH: Agreed Nursing Documentation-PMH Hx Cardiac Problems: No Hx Hypertension: Yes Hx Pacemaker: No Hx Asthma: Yes Hx COPD: No Hx Diabetes: No Hx Cancer: No Hx Gastrointestinal Problems: No Hx Dialysis: No Hx Neurological Problems: No Hx Cerebrovascular Accident: Yes - 2-3 YRS AGO Hx Seizures: No Hx Weakness: Yes - right sided Review of Systems All Other Systems: negative except mentioned in HPI Physical Exam Vital Signs Date Time Temp Pulse Resp B/P (MAP) Pulse Ox O2 Delivery O2 Flow Rate FiO2 11/27/17 03:50 97.3 94 16 121/83 100 Room Air 97.3 Sp02 EP Interpretation: reviewed, normal General Appearance: well appearing, no apparent distress, GCS 15 Head: normocephalic Eyes: bilateral eye normal inspection, bilateral eye PERRL, bilateral eye EOMI ENT: normal pharynx, moist mucus membranes - poor dentition Neck: supple, no bony tend Respiratory: chest non-tender, lungs clear, normal breath sounds Cardiovascular #1: regular rate, rhythm Cardiovascular #2: 2+ radial (R) Gastrointestinal: normal inspection, normal bowel sounds, non tender, no mass, non-distended Genitourinary: normal inspection Musculoskeletal: back normal, gait/station normal, normal range of motion Neurologic: alert, oriented x3, 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 Anesthesia: Lidocaine cc's of anesthesia: 6 Complications: none Central Line Post Position: sutured, good blood return Attempts: One Patient Tolerated: Well Complications: None Progress EBL 3 ml Medical Decision Making Diagnostic Impression: Primary Impression: Syncope Qualified Codes: R55 - Syncope and collapse Additional Impressions: Left hip pain Diabetes mellitus Qualified Codes: E11.8 - Type 2 diabetes mellitus with unspecified complications Contusion of left hip Qualified Codes: S70.02XA - Contusion of left hip, initial encounter narcotic seeking behavior ER Course The patient presents with a syncopal episode with L hip pain. He complains of weakness there. He is the evaluated with CT of the head, EKG and chest x-ray and labs. He doesn't appear to have a hemispheric CVA at this time. TPA is not indicated as was given one week ago. However the patient needs to be evaluated for syncope exclude acute myocardial infarction, arrhythmia, electrolyte abnormality (hypoglycemia) amongst others. AP pelvis were also be performed because is complaining about left hip pain. This appears to be a chronic problem and the patient states that his pain tolerance is high. He is requesting Dilaudid at this time and states nothing else will help. No IV was able to be established on the patient. A central line was discussed with the patient was started and the right femoral area using lidocaine. The patient tolerated the procedure well. Prior to a central line he was offered IM medication and stated he wanted to wait for the IV access. Patient reluctant to give urine. (Did not give in ED.) EKG without injury. CXR unremarkable. AP pelvis no fx, hard stool, CVP. Labs with normal WBC, H/H. Glucose elevated. Elevated calcium. Patient having to be roused from sleep. States "the pain is coming back" and requesting another shot. Tylenol given. Patient admitted to telemetry Dr. Doyle. Consideration for MRI. Laboratory Tests Test 11/27/17 04:50 White Blood Count 5.8 K/UL (4.8-10.8) Red Blood Count 6.48 M/UL (4.70-6.10) H Hemoglobin 17.6 G/DL (14.2-18.0) Hematocrit 53.6 % (42.0-52.0) H Mean Corpuscular Volume 83 FL (80-99) Mean Corpuscular Hemoglobin 27.2 PG (27.0-31.0) Mean Corpuscular Hemoglobin Concent 32.8 G/DL (32.0-36.0) Red Cell Distribution Width 12.7 % (11.6-14.8) Platelet Count 221 K/UL (150-450) Mean Platelet Volume 6.4 FL (6.5-10.1) L Neutrophils (%) (Auto) 64.0 % (45.0-75.0) Lymphocytes (%) (Auto) 28.8 % (20.0-45.0) Monocytes (%) (Auto) 6.0 % (1.0-10.0) Eosinophils (%) (Auto) 0.5 % (0.0-3.0) Basophils (%) (Auto) 0.8 % (0.0-2.0) Prothrombin Time 9.9 SEC (9.30-11.50) Prothrombin Time INR 0.9 (0.9-1.1) PTT 23 SEC (23-33) Sodium Level 135 MMOL/L (136-145) L Potassium Level 5.1 MMOL/L (3.5-5.1) Chloride Level 97 MMOL/L (98-107) L Carbon Dioxide Level 26 MMOL/L (21-32) Anion Gap 12 mmol/L (5-15) Blood Urea Nitrogen 18 mg/dL (7-18) Creatinine 0.8 MG/DL (0.55-1.30) Estimate Glomerular Filtration Rate > 60 mL/min (>60) Glucose Level 252 MG/DL (74-106) H Calcium Level 10.2 MG/DL (8.5-10.1) H Total Bilirubin 0.8 MG/DL (0.2-1.0) Aspartate Amino Transferase (AST) 34 U/L (15-37) Alanine Aminotransferase (ALT) 51 U/L (12-78) Alkaline Phosphatase 197 U/L (46-116) H Total Creatine Kinase 186 U/L (26-308) Troponin I 0.000 ng/mL (0.000-0.056) Pro-B-Type Natriuretic Peptide 100 pg/mL (0-125) Total Protein 9.9 G/DL (6.4-8.2) H Albumin 4.4 G/DL (3.4-5.0) Globulin 5.5 g/dL Albumin/Globulin Ratio 0.8 (1.0-2.7) L EKG Diagnostic Results Rate: normal Rhythm: NSR ST Segments: no acute changes - LVH Rhythm Strip Diag. Results EP Interpretation: yes Rhythm: NSR, no PVC's, no ectopy Chest X-Ray Diagnostic Results Chest X-Ray Diagnostic Results : Chest X-Ray Ordered: Yes # of Views/Limited/Complete: 1 View Indication: Other EP Interpretation: Yes Interpretation: no consolidation, no effusion, no pneumothorax, no acute cardiopulmonary disease Impression: No acute disease Electronically Signed by: Electronically signed by Grady Uribe MD Other X-Ray Diagnostic Results Other X-Ray Diagnostic Results : X-Ray ordered: pelvis # of Views/Limited Vs Complete: 1 View Indication: Pain EP Interpretation: Yes Interpretation: no dislocation, no soft tissue swelling, no fractures, other - CVP, stool Impression: Other Electronically Signed by: Electronically signed by Grady Uribe MD CT/MRI/US Diagnostic Results CT/MRI/US Diagnostic Results : Imaging Test Ordered: head Impression no acute findings Last Vital Signs Date Time Temp Pulse Resp B/P (MAP) Pulse Ox O2 Delivery O2 Flow Rate FiO2 11/27/17 12:00 86 11/27/17 08:26 98.1 14 115/70 98 Room Air 97.0 Status: improved Disposition: ADMITTED INPATIENT Condition: Serious Referrals: NON PHYSICIAN (PCP) Grady Uribe M.D. Nov 27, 2017 06:27
[2017-11-27 07:33] VITALS: BP 112/73
--- NOTE | 2017-11-27 07:55 | Diagnostic Imaging Report ---
Indication: Syncope Technique: Continuous helical CT scanning of the head was performed utilizing automated exposure control without intravenous contrast material. Axial and coronal reconstructions were obtained. Comparison: 11/15/2017 CT dose: Total DLP 1390.16 mGycm; CTDI vol 70.38 mGy Findings: There is no acute intracranial hemorrhage, mass effect or cortical edema. The ventricles, cisterns and sulci are stable. There is no midline shift. Visualized mastoid air cells are clear. Mild mucosal thickening in some ethmoid air cells. IMPRESSION: No evidence of acute intracranial hemorrhage, mass effect or cortical edema. MRI may be obtained for more sensitive evaluation as clinically indicated. Mild paranasal sinus disease. This corresponds with the statrad preliminary report. The CT scanner at [facility] is accredited by the [employer] and the scans are performed using protocols designed to limit radiation exposure to as low as reasonably achievable to attain images of sufficient resolution adequate for diagnostic evaluation.
--- NOTE | 2017-11-27 08:37 | Diagnostic Imaging Report ---
Indication: Pain Technique: XRAY Pelvis 1v Comparison: 06/12/2015 Findings: Right transfemoral approach catheter is noted with its tip projecting over the upper right sacral ala. There is no evidence of acute fracture. Mild degenerative change of the hips and enthesopathic changes of the pelvic bones noted. There is degenerative change of the lower lumbar spine. Bowel gas pattern is unremarkable. Impression: Mild degenerative and enthesopathic change. No evidence of acute fracture or dislocation. Right transfemoral catheter in place.
--- NOTE | 2017-11-27 08:40 | Diagnostic Imaging Report ---
Indication: Syncope Technique: XRAY Chest 1v Comparison: 11/15/2017 Findings: Heart size and mediastinal contours are within normal limits and stable compared to the prior exam. There is no focal consolidation, pneumothorax or pleural effusion. Osseous structures demonstrate no acute abnormality. Impression: No radiographic evidence of acute cardiopulmonary disease. No significant interval change in appearance of the heart and lungs compared to the prior exam.
[2017-11-27] MEDS ORDERED: D5 1/2NS 1,000 ML IV SCH (10:19)
[2017-11-27] MEDS ORDERED: Miralax 17gm pkt ORAL PRN (10:30)
[2017-11-27] MEDS ORDERED: LORazepam Inj 2mg/ml 1ml IV PRN (10:30)
[2017-11-27] MEDS ORDERED: Nitroglycerin Subl 0.4mg tab SL PRN (10:30)
[2017-11-27] MEDS ORDERED: Mylanta II UD 30ml ORAL PRN (10:30)
[2017-11-27] MEDS ORDERED: Morphine Sulfate 4mg/ml Inj IVP PRN (10:30)
[2017-11-27] MEDS ORDERED: Albuterol/Ipratropium 3ml neb HHN PRN (10:30)
[2017-11-27] MEDS ORDERED: Promethazine/Codeine 5ml UD ORAL PRN (10:30)
--- NOTE | 2017-11-27 13:12 | Cardiology Report ---
APPROVED REPORT EXAM: Two-dimensional and M-mode echocardiogram with Doppler and color Doppler. INDICATION LV function M-Mode DIMENSIONS IVSd1.3 (0.7-1.1cm)Left Atrium (MM)2.9 (1.6-4.0cm) LVDd4.2 (3.5-5.6cm)Aortic Root3.5 (2.0-3.7cm) PWd1.6 (0.7-1.1cm)Aortic Cusp Exc.1.8 (1.5-2.0cm) LVDs3.0 (2.5-4.0cm) PWs2.0 cm Technically difficult study due to poor acoustical windows. Normal left ventricular chamber size, systolic function and wall motion to extent visualized. Left ventricular ejection fraction estimated to be 60 %. Mild left ventricular hypertrophy. No evidence of pericardial effusion. Left atrial size at upper limits of normal. Right cardiac chamber sizes are within normal limits. Focal aortic valve sclerosis with adequate cusp excursion. Thickened mitral valve leaflets with normal excursion. Mitral annulus and aortic root calcification. Pulmonic valve not well visualized. Normal tricuspid valve structure. IVC at normal size with physiologic collapse. A color flow and spectral Doppler study was performed and revealed: Trace mitral regurgitation. Mitral diastolic velocities suggest reduced left ventricular relaxation c/w mild LV diastolic dysfunction (Grade I ). Trace tricuspid regurgitation. Tricuspid systolic velocities suggests peak right ventricular systolic pressure of 15 mmHg.
--- NOTE | 2017-11-27 13:15 | History and Physical ---
History of Present Illness General Date patient seen: Nov 27, 2017 Reason for Hospitalization: Generalized Weakness Present Illness HPI 52 year old male with hx of DM, CAD, CVA, s/p TPA, s/p Stent. presented to [facility] with CC of a syncopal episode at home. He was feeling hungry. He woke up on the kitchen floor when his roommate was shaking him. He hit his left hip and is complaining about left hip pain. Allergies: Coded Allergies: ACETAMINOPHEN (Unverified Allergy, Unknown, 04/02/15) IBUPROFEN (Unverified Allergy, Unknown, 12/04/14) KETOROLAC (Unverified Allergy, Unknown, 12/04/14) Medication History Scheduled Albuterol Sulfate* (Albuterol Sulfate Mdi*), 2 PUFF INH Q6H, (Reported) Aspirin (Aspirin EC), 81 MG DAILY, (Reported) Lisinopril* (Zestril*), 10 MG ORAL DAILY, (Reported) Patient History Healthcare decision maker Resuscitation status Full Code Advanced Directive on File Past Medical/Surgical History Past Medical/Surgical History: (1) Diabetes mellitus (2) CVA (cerebral infarction) Review of Systems All Other Systems: negative except mentioned in HPI Physical Exam General Appearance: WD/WN Lines, tubes and drains: peripheral HEENT: normocephalic, atraumatic Neck: non-tender, normal alignment Respiratory/Chest: chest wall non-tender, lungs clear Breasts: no masses Cardiovascular/Chest: normal rate Abdomen: normal bowel sounds Genitourinary/Rectal: normal genital exam Extremities: normal range of motion Skin Exam: normal pigmentation 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 Last 24 Hour Vital Signs Date Time Temp Pulse Resp B/P (MAP) Pulse Ox O2 Delivery O2 Flow Rate FiO2 11/27/17 12:00 86 11/27/17 08:26 98.1 80 14 115/70 98 Room Air 97.0 11/27/17 07:34 85 13 Room Air 11/27/17 07:33 97.0 85 13 112/73 100 Room Air 97.0 11/27/17 06:26 97.2 90 22 126/78 95 Room Air 97.2 11/27/17 05:54 97.4 21 148/88 100 Room Air 97.4 11/27/17 04:30 97.3 21 138/84 100 Room Air 97.3 11/27/17 03:50 97.3 94 16 121/83 100 Room Air 97.3 Intake and Output 11/26/17 11/27/17 19:00 07:00 Intake Total 120 ml Balance 120 ml Intake Oral 120 ml Laboratory Tests Test 11/27/17 04:50 White Blood Count 5.8 K/UL (4.8-10.8) Red Blood Count 6.48 M/UL (4.70-6.10) H Hemoglobin 17.6 G/DL (14.2-18.0) Hematocrit 53.6 % (42.0-52.0) H Mean Corpuscular Volume 83 FL (80-99) Mean Corpuscular Hemoglobin 27.2 PG (27.0-31.0) Mean Corpuscular Hemoglobin Concent 32.8 G/DL (32.0-36.0) Red Cell Distribution Width 12.7 % (11.6-14.8) Platelet Count 221 K/UL (150-450) Mean Platelet Volume 6.4 FL (6.5-10.1) L Neutrophils (%) (Auto) 64.0 % (45.0-75.0) Lymphocytes (%) (Auto) 28.8 % (20.0-45.0) Monocytes (%) (Auto) 6.0 % (1.0-10.0) Eosinophils (%) (Auto) 0.5 % (0.0-3.0) Basophils (%) (Auto) 0.8 % (0.0-2.0) Prothrombin Time 9.9 SEC (9.30-11.50) Prothromb Time International Ratio 0.9 (0.9-1.1) Activated Partial Thromboplast Time 23 SEC (23-33) Sodium Level 135 MMOL/L (136-145) L Potassium Level 5.1 MMOL/L (3.5-5.1) Chloride Level 97 MMOL/L (98-107) L Carbon Dioxide Level 26 MMOL/L (21-32) Anion Gap 12 mmol/L (5-15) Blood Urea Nitrogen 18 mg/dL (7-18) Creatinine 0.8 MG/DL (0.55-1.30) Estimat Glomerular Filtration Rate > 60 mL/min (>60) Glucose Level 252 MG/DL (74-106) H Calcium Level 10.2 MG/DL (8.5-10.1) H Total Bilirubin 0.8 MG/DL (0.2-1.0) Aspartate Amino Transf (AST/SGOT) 34 U/L (15-37) Alanine Aminotransferase (ALT/SGPT) 51 U/L (12-78) Alkaline Phosphatase 197 U/L (46-116) H Total Creatine Kinase 186 U/L (26-308) Troponin I 0.000 ng/mL (0.000-0.056) Pro-B-Type Natriuretic Peptide 100 pg/mL (0-125) Total Protein 9.9 G/DL (6.4-8.2) H Albumin 4.4 G/DL (3.4-5.0) Globulin 5.5 g/dL Albumin/Globulin Ratio 0.8 (1.0-2.7) L Height (Feet): 5 Height (Inches): 8.00 Weight (Pounds): 153 Medications Current Medications Medications (Trade) Dose Ordered Sig/Dino Route PRN Reason Start Time Stop Time Status Last Admin Dose Admin Al Hydroxide/Mg Hydroxide (Mylanta II) 30 ml Q6H PRN ORAL dyspepsia 11/27/17 10:30 12/27/17 10:29 Albuterol/ Ipratropium (Albuterol/ Ipratropium) 3 ml EVERY 4 HOURS PRN HHN Shortness of Breath 11/27/17 10:30 12/02/17 10:29 Clonidine HCl (Catapres Tab) 0.1 mg Q4H PRN ORAL For High Blood Pressure 11/27/17 10:30 12/27/17 10:29 Dextrose (Dextrose 50%) STAT PRN IV Hypoglycemia 11/27/17 10:30 12/27/17 10:29 Heparin Sodium (Porcine) (Heparin 5000 units/ml) 5,000 units EVERY 12 HOURS SUBQ 11/27/17 21:00 12/27/17 20:59 Hydromorphone HCl (Dilaudid) 1 mg Q4H PRN IVP Severe Pain (Pain Scale 7-10) 11/27/17 12:15 12/04/17 12:14 Lisinopril (Zestril) 10 mg DAILY ORAL 11/28/17 09:00 12/28/17 08:59 Lorazepam (Ativan 2mg/ml 1ml) 0.5 mg Q4H PRN IV For Anxiety 11/27/17 10:30 12/04/17 10:29 Nitroglycerin (Ntg) 0.4 mg Q5M X 3 DOSES PRN SL Prn Chest Pain 11/27/17 10:30 12/27/17 10:29 Ondansetron HCl (Zofran) 4 mg Q6H PRN IVP Nausea & Vomiting 11/27/17 10:30 12/27/17 10:29 Polyethylene Glycol (Miralax) 17 gm HSPRN PRN ORAL Constipation 11/27/17 10:30 12/27/17 10:29 Promethazine HCl/ Codeine (Phenergan with Codeine) 5 ml Q4H PRN ORAL For Cough 11/27/17 10:30 12/27/17 10:29 Temazepam (Restoril) 15 mg HSPRN PRN ORAL Insomnia 11/27/17 10:30 12/04/17 10:29 Assessment/Plan Problem List: (1) Syncope ICD Codes: R55 - Syncope and collapse SNOMED: 315877301 (2) Diabetes mellitus ICD Codes: E11.9 - Type 2 diabetes mellitus without complications SNOMED: 53031673 (3) CVA (cerebral infarction) ICD Codes: I63.9 - Cerebral infarction SNOMED: 198855784 Assessment/Plan telemetry monitoring echo cardiac evaluation pt/ot pain management ANALY REESE Nov 27, 2017 13:15
[2017-11-27] MEDS ORDERED: DiphenhydrAMINE 50mg/ml Inj IVP PRN (14:00)
--- NOTE | 2017-11-27 15:03 | Cardiology Report ---
APPROVED REPORT EKG Measurement Heart [id number] 148P71 [id number] Normal sinus rhythm Voltage criteria for left ventricular hypertrophy Abnormal ECG
[2017-11-27 16:00] VITALS: BP 119/63
[2017-11-27] MEDS: Heparin 5000 units/ml inj SUBQ SCH (21:01)
[2017-11-28] VITALS: BP 129/79
[2017-11-28 04:00] VITALS: BP 131/80
[2017-11-28 04:50] LABS: INR 0.9 (0.9-1.1)
[2017-11-28 04:55] LABS: AMMONIA 50 umol/L (11-32)
[2017-11-28 04:56] LABS: BASOPHILS % (AUTO) 0.9 % (0.0-2.0); EOSINOPHILS % (AUTO) 1.6 % (0.0-3.0); HEMATOCRIT 40.2 % (42.0-52.0); HEMOGLOBIN 13.3 G/DL (14.2-18.0); LYMPHOCYTES % (AUTO) 44.9 % (20.0-45.0); MEAN CORPUSCULAR VOLUME 82 FL (80-99); MONOCYTES % (AUTO) 8.2 % (1.0-10.0); NEUTROPHILS % (AUTO) 44.5 % (45.0-75.0); PLATELET COUNT 207 K/UL (150-450); RED BLOOD COUNT 4.91 M/UL (4.70-6.10); RED CELL DISTRIBUTION WIDTH 12.3 % (11.6-14.8); WHITE BLOOD COUNT 5.2 K/UL (4.8-10.8)
[2017-11-28 05:25] LABS: ANION GAP 6 mmol/L (5-15); BLOOD UREA NITROGEN 25 mg/dL (7-18); CALCIUM 9.2 MG/DL (8.5-10.1); CARBON DIOXIDE 30 MMOL/L (21-32); CHLORIDE 98 MMOL/L (98-107); POTASSIUM 4.7 MMOL/L (3.5-5.1); SODIUM 134 MMOL/L (136-145)
[2017-11-28 05:38] LABS: ALANINE AMINOTRANSFERASE 51 U/L (12-78); ALBUMIN 3.2 G/DL (3.4-5.0); ALBUMIN/GLOBULIN RATIO 0.8 (1.0-2.7); ALKALINE PHOSPHATASE 153 U/L (46-116); ASPARTATE AMINO TRANSFERASE 27 U/L (15-37); BILIRUBIN,TOTAL 0.2 MG/DL (0.2-1.0); CHOLESTEROL 153 MG/DL (< 200); HDL CHOLESTEROL 72 MG/DL (40-60); TRIGLYCERIDES 84 MG/DL (30-150)
[2017-11-28 08:00] VITALS: BP 133/75
[2017-11-28] MEDS: Lisinopril 10mg tab ORAL SCH (08:33)
[2017-11-28] MEDS: Heparin 5000 units/ml inj SUBQ SCH ×2 (08:34→22:39)
[2017-11-28 12:00] VITALS: BP 113/68
--- NOTE | 2017-11-28 15:10 | Pulmonology Progress Note ---
Assessment/Plan Problems: (1) Syncope (2) Diabetes mellitus (3) CVA (cerebral infarction) Assessment/Plan awaiting neuro and cardio evaluation symptomatic treatment check labs continue current meds Pain consult. Subjective ROS Limited/Unobtainable: No Interval Events: c/o pain Allergies: Coded Allergies: ACETAMINOPHEN (Unverified Allergy, Unknown, 04/02/15) IBUPROFEN (Unverified Allergy, Unknown, 12/04/14) KETOROLAC (Unverified Allergy, Unknown, 12/04/14) Objective Last 24 Hour Vital Signs Date Time Temp Pulse Resp B/P (MAP) Pulse Ox O2 Delivery O2 Flow Rate FiO2 11/28/17 14:49 97.0 11/28/17 12:00 97.0 83 18 113/68 98 Room Air 97.0 11/28/17 12:00 74 11/28/17 11:13 97.0 11/28/17 10:43 97.0 11/28/17 08:33 133/75 11/28/17 08:18 80 16 Room Air 11/28/17 08:00 97.0 81 17 133/75 96 Room Air 97.0 11/28/17 08:00 86 11/28/17 04:00 97.2 82 21 131/80 96 Room Air 97.2 11/28/17 03:53 78 11/28/17 00:00 97.3 78 20 129/79 95 Room Air 97.3 11/27/17 23:56 78 11/27/17 21:11 84 18 Room Air 11/27/17 20:00 88 11/27/17 16:00 96.8 87 20 119/63 98 Room Air 96.8 11/27/17 16:00 80 Intake and Output 11/27/17 11/28/17 19:00 07:00 Intake Total 880 ml Output Total 550 ml Balance 330 ml Intake Oral 880 ml Output Urine Total 550 ml # Voids 2 # Bowel Movements 1 Objective General Appearance: WD/WN, no apparent distress Lines, tubes and drains: peripheral HEENT: normocephalic, atraumatic Neck: non-tender, normal alignment Respiratory/Chest: chest wall non-tender, lungs clear Breasts: no masses Cardiovascular/Chest: normal peripheral pulses Abdomen: normal bowel sounds, non tender Genitourinary/Rectal: normal genital exam Extremities: normal range of motion Skin Exam: normal pigmentation Laboratory Tests 11/28/17 03:45: White Blood Count 5.2, Red Blood Count 4.91, Hemoglobin 13.3L, Hematocrit 40.2L , Mean Corpuscular Volume 82, Mean Corpuscular Hemoglobin 27.2, Mean Corpuscular Hemoglobin Concent 33.2, Red Cell Distribution Width 12.3, Platelet Count 207, Mean Platelet Volume 6.4L, Neutrophils (%) (Auto) 44.5L, Lymphocytes (%) (Auto) 44.9, Monocytes (%) (Auto) 8.2, Eosinophils (%) (Auto) 1.6, Basophils (%) (Auto) 0.9, Erythrocyte Sedimentation Rate 24H, Prothrombin Time 9.3, Prothromb Time International Ratio 0.9, Activated Partial Thromboplast Time 22L, Sodium Level 134L, Potassium Level 4.7, Chloride Level 98, Carbon Dioxide Level 30, Anion Gap 6, Blood Urea Nitrogen 25H, Creatinine 1.0, Estimat Glomerular Filtration Rate > 60, Glucose Level 371#H, Calcium Level 9.2, Phosphorus Level 4.0, Magnesium Level 1.6L, Total Bilirubin 0.2, Aspartate Amino Transf (AST/SGOT) 27, Alanine Aminotransferase (ALT/SGPT) 51, Alkaline Phosphatase 153H, Ammonia 50H, C-Reactive Protein, Quantitative 1.8H, Total Protein 7.2, Albumin 3.2L, Globulin 4.0, Albumin/Globulin Ratio 0.8L, Triglycerides Level 84, Cholesterol Level 153, LDL Cholesterol 71, HDL Cholesterol 72H, Cholesterol/HDL Ratio 2.1L, Thyroid Stimulating Hormone (TSH) 2.177 Current Medications Medications (Trade) Dose Ordered Sig/Dino Route PRN Reason Start Time Stop Time Status Last Admin Dose Admin Al Hydroxide/Mg Hydroxide (Mylanta II) 30 ml Q6H PRN ORAL dyspepsia 11/27/17 10:30 12/27/17 10:29 Albuterol/ Ipratropium (Albuterol/ Ipratropium) 3 ml EVERY 4 HOURS PRN HHN Shortness of Breath 11/27/17 10:30 12/02/17 10:29 Chlorhexidine Gluconate (Ros-Hex 2%) 1 applic DAILY@2000 TOPIC 11/28/17 20:00 12/28/17 19:59 Clonidine HCl (Catapres Tab) 0.1 mg Q4H PRN ORAL For High Blood Pressure 11/27/17 10:30 12/27/17 10:29 Dextrose (Dextrose 50%) STAT PRN IV Hypoglycemia 11/27/17 10:30 12/27/17 10:29 Diphenhydramine HCl (Benadryl) 25 mg Q6H PRN IVP Itching 11/27/17 14:00 12/27/17 13:59 Heparin Sodium (Porcine) (Heparin 5000 units/ml) 5,000 units EVERY 12 HOURS SUBQ 11/27/17 21:00 12/27/17 20:59 11/28/17 08:34 Hydromorphone HCl (Dilaudid) 1 mg Q4H PRN IVP Severe Pain (Pain Scale 7-10) 11/27/17 12:15 12/04/17 12:14 11/28/17 14:49 Lisinopril (Zestril) 10 mg DAILY ORAL 11/28/17 09:00 12/28/17 08:59 11/28/17 08:33 Lorazepam (Ativan 2mg/ml 1ml) 0.5 mg Q4H PRN IV For Anxiety 11/27/17 10:30 12/04/17 10:29 Nitroglycerin (Ntg) 0.4 mg Q5M X 3 DOSES PRN SL Prn Chest Pain 11/27/17 10:30 12/27/17 10:29 Ondansetron HCl (Zofran) 4 mg Q6H PRN IVP Nausea & Vomiting 11/27/17 10:30 12/27/17 10:29 Polyethylene Glycol (Miralax) 17 gm HSPRN PRN ORAL Constipation 11/27/17 10:30 12/27/17 10:29 Promethazine HCl/ Codeine (Phenergan with Codeine) 5 ml Q4H PRN ORAL For Cough 11/27/17 10:30 12/27/17 10:29 Temazepam (Restoril) 15 mg HSPRN PRN ORAL Insomnia 11/27/17 10:30 12/04/17 10:29 ANALY REESE Nov 28, 2017 15:10
[2017-11-28 16:00] VITALS: BP 125/70
--- NOTE | 2017-11-28 19:12 | Cardiology Progress Note ---
Assessment/Plan Assessment/Plan [id number] need diabetic mangment so far all martinez neg need orthostatic vitals Objective Last 24 Hour Vital Signs Date Time Temp Pulse Resp B/P (MAP) Pulse Ox O2 Delivery O2 Flow Rate FiO2 11/28/17 18:56 97.2 11/28/17 16:00 97.2 76 17 125/70 98 Room Air 97.2 11/28/17 16:00 76 11/28/17 15:19 97.0 11/28/17 14:49 97.0 11/28/17 12:00 97.0 83 18 113/68 98 Room Air 97.0 11/28/17 12:00 74 11/28/17 10:43 97.0 11/28/17 08:33 133/75 11/28/17 08:18 80 16 Room Air 11/28/17 08:00 97.0 81 17 133/75 96 Room Air 97.0 11/28/17 08:00 86 11/28/17 04:00 97.2 82 21 131/80 96 Room Air 97.2 11/28/17 03:53 78 11/28/17 00:00 97.3 78 20 129/79 95 Room Air 97.3 11/27/17 23:56 78 11/27/17 21:11 84 18 Room Air 11/27/17 20:00 88 Intake and Output 11/27/17 11/28/17 19:00 07:00 Intake Total 880 ml Output Total 550 ml Balance 330 ml Intake Oral 880 ml Output Urine Total 550 ml # Voids 2 # Bowel Movements 1 Laboratory Tests Test 11/28/17 03:45 White Blood Count 5.2 K/UL (4.8-10.8) Red Blood Count 4.91 M/UL (4.70-6.10) Hemoglobin 13.3 G/DL (14.2-18.0) L Hematocrit 40.2 % (42.0-52.0) L Mean Corpuscular Volume 82 FL (80-99) Mean Corpuscular Hemoglobin 27.2 PG (27.0-31.0) Mean Corpuscular Hemoglobin Concent 33.2 G/DL (32.0-36.0) Red Cell Distribution Width 12.3 % (11.6-14.8) Platelet Count 207 K/UL (150-450) Mean Platelet Volume 6.4 FL (6.5-10.1) L Neutrophils (%) (Auto) 44.5 % (45.0-75.0) L Lymphocytes (%) (Auto) 44.9 % (20.0-45.0) Monocytes (%) (Auto) 8.2 % (1.0-10.0) Eosinophils (%) (Auto) 1.6 % (0.0-3.0) Basophils (%) (Auto) 0.9 % (0.0-2.0) Erythrocyte Sedimentation Rate 24 MM/HR (0-20) H Prothrombin Time 9.3 SEC (9.30-11.50) Prothromb Time International Ratio 0.9 (0.9-1.1) Activated Partial Thromboplast Time 22 SEC (23-33) L Sodium Level 134 MMOL/L (136-145) L Potassium Level 4.7 MMOL/L (3.5-5.1) Chloride Level 98 MMOL/L (98-107) Carbon Dioxide Level 30 MMOL/L (21-32) Anion Gap 6 mmol/L (5-15) Blood Urea Nitrogen 25 mg/dL (7-18) H Creatinine 1.0 MG/DL (0.55-1.30) Estimat Glomerular Filtration Rate > 60 mL/min (>60) Glucose Level 371 MG/DL (74-106) #H Calcium Level 9.2 MG/DL (8.5-10.1) Phosphorus Level 4.0 MG/DL (2.5-4.9) Magnesium Level 1.6 MG/DL (1.8-2.4) L Total Bilirubin 0.2 MG/DL (0.2-1.0) Aspartate Amino Transf (AST/SGOT) 27 U/L (15-37) Alanine Aminotransferase (ALT/SGPT) 51 U/L (12-78) Alkaline Phosphatase 153 U/L (46-116) H Ammonia 50 umol/L (11-32) H C-Reactive Protein, Quantitative 1.8 mg/dL (0.00-0.90) H Total Protein 7.2 G/DL (6.4-8.2) Albumin 3.2 G/DL (3.4-5.0) L Globulin 4.0 g/dL Albumin/Globulin Ratio 0.8 (1.0-2.7) L Triglycerides Level 84 MG/DL (30-150) Cholesterol Level 153 MG/DL (< 200) LDL Cholesterol 71 mg/dL (<100) HDL Cholesterol 72 MG/DL (40-60) H Cholesterol/HDL Ratio 2.1 (3.3-4.4) L Thyroid Stimulating Hormone (TSH) 2.177 uiU/mL (0.358-3.740) ALBERTO THOMAS Nov 28, 2017 19:12
[2017-11-28 20:00] VITALS: BP 89/60
[2017-11-28] MEDS: Dyna-Hex 2% Top Sol 2oz TOPIC SCH (22:37)
[2017-11-29] VITALS: BP 105/59
--- NOTE | 2017-11-29 00:02 | Consultation ---
DATE OF CONSULTATION: 11/28/2017 CARDIOLOGY CONSULTATION CONSULTING PHYSICIAN: Jermaine Gan M.D. REFERRING PHYSICIAN: Adam Us M.D. REASON FOR REFERRAL: Syncope. HISTORY OF PRESENT ILLNESS: This is a middle-aged gentleman, who apparently has a history of high blood pressure. He was walking from work to his house and found himself on the floor. In fact, he tells me that his roommate found him on the floor and he brought him to the emergency room at [facility]. The patient indicates that he has never had the syncopal episodes before. This is his first time. He denies any chest pain or pressure. There is no PND. No orthopnea. Occasionally, he has lightheadedness, although he does not remember the last time. He does not have any heart pounding or palpitations. PAST MEDICAL HISTORY: Positive for history of stroke and apparently he had some kind of a clot in his legs. He gave the emergency room physician information that he had presented to the emergency room here at [facility] with weakness on one side. He received thrombolytic therapy and he was transferred to [facility] with improvement in his function. Nevertheless, he also has high blood pressure. He has high cholesterol. He has asthma. No other medical problems on questioning. ALLERGIES: He is allergic to Toradol and Motrin. SOCIAL HISTORY: He smokes three cigarettes per day. Denies any alcohol or drug use. REVIEW OF SYSTEMS: GASTROINTESTINAL: Negative except for constipation. GENITOURINARY: Negative. PULMONARY: Positive for coughing and mucus production. CONSTITUTIONAL: Negative. NEUROLOGIC: Negative. PHYSICAL EXAMINATION: GENERAL: Shows to be a middle-aged gentleman, in no respiratory distress. HEENT: Unremarkable. NECK: Supple. No jugular venous distention. No abdominojugular reflux noted. LUNGS: Clear to auscultation and percussion. CARDIAC: S1 is normal. S2 is normal. Regular rate and rhythm. There is a holosystolic regurgitant murmur. ABDOMEN: Soft and nontender. Positive bowel sounds. EXTREMITIES: There is no clubbing, cyanosis, or edema. NEUROLOGIC: He is awake, alert, responsive, and he moves all four extremities. LABORATORY VALUES: The telemetry data shows sinus rhythm. No pauses. No SVT. No VT on the available rhythm strips. He has had a carotid duplex that shows mild degree of stenosis. Venous duplex of the lower extremity does not show any evidence of deep venous thrombosis. EKG basically showed sinus rhythm, normal QRS axis, and nonspecific T-wave abnormalities. He has had an echocardiogram that showed ejection fraction of 60% and mild diastolic relaxation abnormality. No other significant abnormalities on the echocardiogram. A CT scan of the head was performed that showed no evidence of acute intracranial hemorrhage, mass effect, or cortical edema. Mild paranasal sinus disease. A chest x-ray showed no radiographic evidence of acute cardiopulmonary disease processes. No significant interval change from prior evaluations. Blood test, white count of 5.3, hemoglobin 13.3, and a platelet count of 207,000. It is of note that the patient's hemoglobin was 13.1 on 11/15/2017, but yesterday when he presented to the emergency room, his hemoglobin was up to 17.6. His sodium is 134, potassium 4.7, chloride 98, bicarbonate of 30, BUN of 21, creatinine of 1.0, and glucose of 371. His blood sugar yesterday was 252. Magnesium of 1.6. Alkaline phosphatase of 197 and 153 today. Troponin was negative yesterday. His CRP of 1.8. Total cholesterol is 153 with triglycerides 84, HDL of 71, LDL of 72, and TSH of 2.17. His INR is 0.9 and a PTT of 22. Tox screen none done and no urine has been performed. ASSESSMENT: 1. Syncope. 2. History of hypertension. 3. Hyperglycemia/probable diabetes. 4. Hyponatremia. 5. Alkalosis. PLAN: This patient was seen in cardiac consultation. The patient has had a recent thrombolytic therapy and the details are really none known. [place] [facility] he had some weakness on the left side, he says. Nevertheless, there are no, at this time, indications or reason why he had a syncopal episode or why he could have had a syncopal episode yesterday. His vital signs appeared to be intact though he has not had an orthostatic vitals checked. His telemetry is negative. His EKG is negative. His echocardiogram is negative already. He denies any chance of inadvertent overdose of his blood pressure medications. He had no signs or symptoms of a coronary syndrome on presentation and the etiology of his syncope remains unknown despite the workup that has been initiated, although orthostatic vitals will be ordered. He has been taking his lisinopril that he takes at home. There is a chance that he may have been dehydrated because of his hyperglycemia, and hemoglobin A1c should be ordered. His blood sugar should be managed with Accu-Cheks and as-needed other medications to control. Jermaine Gan M.D. DR: JEANP IERRE JOB#: [id number] CC:
[2017-11-29 04:00] VITALS: BP 90/54
[2017-11-29 07:50] VITALS: BP 136/79
[2017-11-29] MEDS: Heparin 5000 units/ml inj SUBQ SCH ×2 (07:58→20:20)
[2017-11-29] MEDS: Lisinopril 10mg tab ORAL SCH (07:59)
--- NOTE | 2017-11-29 09:11 | Consultation ---
History of Present Illness General Date patient seen: Nov 29, 2017 Chief Complaint: Present Illness Allergies: Coded Allergies: ACETAMINOPHEN (Unverified Allergy, Unknown, 04/02/15) IBUPROFEN (Unverified Allergy, Unknown, 12/04/14) KETOROLAC (Unverified Allergy, Unknown, 12/04/14) Medication History Scheduled Albuterol Sulfate* (Albuterol Sulfate Mdi*), 2 PUFF INH Q6H, (Reported) Aspirin (Aspirin EC), 81 MG DAILY, (Reported) Lisinopril* (Zestril*), 10 MG ORAL DAILY, (Reported) Patient History Healthcare decision maker Resuscitation status Full Code Advanced Directive on File Physical Exam Last 24 Hour Vital Signs Date Time Temp Pulse Resp B/P (MAP) Pulse Ox O2 Delivery O2 Flow Rate FiO2 11/29/17 08:00 97.7 11/29/17 07:59 136/79 11/29/17 07:50 97.7 77 20 136/79 98 Room Air 97.7 11/29/17 07:38 78 18 Room Air 21 11/29/17 05:00 66 11/29/17 04:51 78 11/29/17 04:00 66 11/29/17 04:00 98.9 71 20 90/54 97 Room Air 98.9 11/29/17 00:00 71 11/29/17 00:00 97.0 76 20 105/59 93 Room Air 97.0 11/28/17 23:04 97.2 11/28/17 20:31 74 18 Room Air 11/28/17 20:00 76 11/28/17 20:00 97.2 67 20 89/60 87 Room Air 97.2 11/28/17 19:26 97.2 11/28/17 18:56 97.2 11/28/17 16:00 97.2 76 17 125/70 98 Room Air 97.2 11/28/17 16:00 76 11/28/17 14:49 97.0 11/28/17 12:00 97.0 83 18 113/68 98 Room Air 97.0 11/28/17 12:00 74 11/28/17 10:43 97.0 Intake and Output 11/28/17 11/29/17 19:00 07:00 Intake Total 600 ml Output Total 1400 ml 1000 ml Balance -800 ml -1000 ml Intake Oral 600 ml Output Urine Total 1400 ml 1000 ml Laboratory Tests Test 11/29/17 04:05 Hemoglobin A1c 11.0 % (4.3-6.0) H Cortisol AM Sample Pending Height (Feet): 5 Height (Inches): 8.00 Weight (Pounds): 153 Medications Current Medications Medications (Trade) Dose Ordered Sig/Dino Route PRN Reason Start Time Stop Time Status Last Admin Dose Admin Al Hydroxide/Mg Hydroxide (Mylanta II) 30 ml Q6H PRN ORAL dyspepsia 11/27/17 10:30 12/27/17 10:29 Albuterol/ Ipratropium (Albuterol/ Ipratropium) 3 ml EVERY 4 HOURS PRN HHN Shortness of Breath 11/27/17 10:30 12/02/17 10:29 Chlorhexidine Gluconate (Ros-Hex 2%) 1 applic DAILY@2000 TOPIC 11/28/17 20:00 12/28/17 19:59 11/28/17 22:37 Clonidine HCl (Catapres Tab) 0.1 mg Q4H PRN ORAL For High Blood Pressure 11/27/17 10:30 12/27/17 10:29 Dextrose (Dextrose 50%) STAT PRN IV Hypoglycemia 11/27/17 10:30 12/27/17 10:29 Diphenhydramine HCl (Benadryl) 25 mg Q6H PRN IVP Itching 11/27/17 14:00 12/27/17 13:59 Heparin Sodium (Porcine) (Heparin 5000 units/ml) 5,000 units EVERY 12 HOURS SUBQ 11/27/17 21:00 12/27/17 20:59 11/29/17 07:58 Hydromorphone HCl (Dilaudid) 1 mg Q4H PRN IVP Severe Pain (Pain Scale 7-10) 11/27/17 12:15 12/04/17 12:14 11/29/17 08:00 Lisinopril (Zestril) 10 mg DAILY ORAL 11/28/17 09:00 12/28/17 08:59 11/29/17 07:59 Lorazepam (Ativan 2mg/ml 1ml) 0.5 mg Q4H PRN IV For Anxiety 11/27/17 10:30 12/04/17 10:29 Nitroglycerin (Ntg) 0.4 mg Q5M X 3 DOSES PRN SL Prn Chest Pain 11/27/17 10:30 12/27/17 10:29 Ondansetron HCl (Zofran) 4 mg Q6H PRN IVP Nausea & Vomiting 11/27/17 10:30 12/27/17 10:29 Polyethylene Glycol (Miralax) 17 gm HSPRN PRN ORAL Constipation 11/27/17 10:30 12/27/17 10:29 Promethazine HCl/ Codeine (Phenergan with Codeine) 5 ml Q4H PRN ORAL For Cough 11/27/17 10:30 12/27/17 10:29 Temazepam (Restoril) 15 mg HSPRN PRN ORAL Insomnia 11/27/17 10:30 12/04/17 10:29 Assessment/Plan Assessment/Plan (1) H/o CVA (2) Neuropathic pain (3) H/o cocaine abuse (4) Lumbar DDD (5) Lumbar spondylosis (6) Lumbar Radiculopathy seen dictated MARIBEL FITZGERALD Nov 29, 2017 09:11
[2017-11-29] MEDS ORDERED: HYDROcodone/Acetamin 10/325 tab ORAL PRN (10:00)
[2017-11-29 12:00] VITALS: BP 115/72
--- NOTE | 2017-11-29 12:15 | Consultation ---
DATE OF CONSULTATION: 11/29/2017 PAIN MANAGEMENT CONSULTATION CONSULTING PHYSICIAN: Stevie Khan M.D. PHYSICIAN DIRECTOR HEALTH: Isis Nolan REFERRING PHYSICIAN: Tania Doyle M.D. CHIEF COMPLAINT: Generalized pain. HISTORY OF PRESENT ILLNESS: This is a 52-year-old male, who is being seen on the telemetry floor of [facility] for comprehensive pain management consultation. The patient is a known patient from prior hospital admission noted to have a history of cocaine abuse, complaining of low back pain with radiation to his lower extremities as well as weakness due to history of CVA with burning and numbness and tingling. At this time, he is on Dilaudid 1 mg IV every 4 hours as needed for severe pain. We were consulted so that the patient would have adequate pain control while here in the hospital. REVIEW OF SYSTEMS: Denies rash, fever, chills, sweating, dizziness, drowsiness, blurred vision, sore throat, or change in weight. No shortness of breath or chest pain. No nausea, vomiting, or blood in the stool or urine. No bowel or bladder incontinence. No dysuria. He is complaining of generalized body pain. PHYSICAL EXAMINATION: GENERAL: Alert, awake, and oriented. VITAL SIGNS: Blood pressure 136/69, heart rate 77, oxygen saturation 98%, respiratory rate is 20, and temperature is 97.7 degrees Fahrenheit. LUNGS: Decreased breath sounds bilaterally. HEART: S1 and S2 regular. ABDOMEN: Benign. EXTREMITIES: No cyanosis. No clubbing. NEUROLOGICAL: Weakness noted in bilateral upper and lower extremity. ASSESSMENT AND PLAN: This is a 62-year-old male with history of cerebrovascular accident, neuropathic pain, history of cocaine abuse, lumbar degenerative disk disease, lumbar spondylosis, and lumbar radiculopathy. The patient will be continued on Dilaudid 1 mg IV every 4 hours as needed for severe pain as well being started on [place] 10/325 1 tablet every 6 hours as needed for moderate pain. The patient was discussed with Dr. Khan and Dr. Khan concurred. We will follow the patient. Thank you very much for the courtesy of this consultation. Stevie Khan M.D. ALFRED Nolan DR: HUI JOB#: [id number] CC:
--- NOTE | 2017-11-29 12:15 | Pulmonology Progress Note ---
Assessment/Plan Problems: (1) Syncope (2) Diabetes mellitus (3) CVA (cerebral infarction) Assessment/Plan awaiting neuro and cardio evaluation symptomatic treatment check labs continue current meds Pain consult appreciated MRI ordered by Neurology pt denies hx of DM and claims doesn't have any problem with BS. despite have elevated HemA1c and persistent hyperglycemia. Subjective ROS Limited/Unobtainable: No Constitutional: Reports: no symptoms HEENT: Repors: no symptoms Allergies: Coded Allergies: ACETAMINOPHEN (Unverified Allergy, Unknown, 04/02/15) IBUPROFEN (Unverified Allergy, Unknown, 12/04/14) KETOROLAC (Unverified Allergy, Unknown, 12/04/14) Objective Last 24 Hour Vital Signs Date Time Temp Pulse Resp B/P (MAP) Pulse Ox O2 Delivery O2 Flow Rate FiO2 11/29/17 08:30 97.7 11/29/17 08:00 79 11/29/17 08:00 97.7 11/29/17 07:59 136/79 11/29/17 07:50 97.7 77 20 136/79 98 Room Air 97.7 11/29/17 07:38 78 18 Room Air 21 11/29/17 05:00 66 11/29/17 04:51 78 11/29/17 04:00 66 11/29/17 04:00 98.9 71 20 90/54 97 Room Air 98.9 11/29/17 00:00 71 11/29/17 00:00 97.0 76 20 105/59 93 Room Air 97.0 11/28/17 23:04 97.2 11/28/17 20:31 74 18 Room Air 11/28/17 20:00 76 11/28/17 20:00 97.2 67 20 89/60 87 Room Air 97.2 11/28/17 18:56 97.2 11/28/17 16:00 97.2 76 17 125/70 98 Room Air 97.2 11/28/17 16:00 76 11/28/17 14:49 97.0 Intake and Output 11/28/17 11/29/17 19:00 07:00 Intake Total 600 ml Output Total 1400 ml 1000 ml Balance -800 ml -1000 ml Intake Oral 600 ml Output Urine Total 1400 ml 1000 ml Objective General Appearance: WD/WN, no apparent distress Lines, tubes and drains: peripheral HEENT: normocephalic, atraumatic Neck: non-tender, normal alignment Respiratory/Chest: chest wall non-tender, lungs clear Breasts: no masses Cardiovascular/Chest: normal peripheral pulses Abdomen: normal bowel sounds, non tender Genitourinary/Rectal: normal genital exam Extremities: normal range of motion Skin Exam: normal pigmentation Laboratory Tests 11/29/17 04:05: Hemoglobin A1c 11.0H, Cortisol AM Sample [Pending] Current Medications Medications (Trade) Dose Ordered Sig/Dino Route PRN Reason Start Time Stop Time Status Last Admin Dose Admin Acetaminophen/ Hydrocodone Bitart ([place] 10/325) 1 tab Q6H PRN ORAL Moderate Pain (Pain Scale 4-6) 11/29/17 10:00 12/06/17 09:59 Al Hydroxide/Mg Hydroxide (Mylanta II) 30 ml Q6H PRN ORAL dyspepsia 11/27/17 10:30 12/27/17 10:29 Albuterol/ Ipratropium (Albuterol/ Ipratropium) 3 ml EVERY 4 HOURS PRN HHN Shortness of Breath 11/27/17 10:30 12/02/17 10:29 Chlorhexidine Gluconate (Ros-Hex 2%) 1 applic DAILY@2000 TOPIC 11/28/17 20:00 12/28/17 19:59 11/28/17 22:37 Clonidine HCl (Catapres Tab) 0.1 mg Q4H PRN ORAL For High Blood Pressure 11/27/17 10:30 12/27/17 10:29 Dextrose (Dextrose 50%) STAT PRN IV Hypoglycemia 11/27/17 10:30 12/27/17 10:29 Diphenhydramine HCl (Benadryl) 25 mg Q6H PRN IVP Itching 11/27/17 14:00 12/27/17 13:59 Heparin Sodium (Porcine) (Heparin 5000 units/ml) 5,000 units EVERY 12 HOURS SUBQ 11/27/17 21:00 12/27/17 20:59 11/29/17 07:58 Hydromorphone HCl (Dilaudid) 1 mg Q4H PRN IVP Severe Pain (Pain Scale 7-10) 11/27/17 12:15 12/04/17 12:14 2/23/18 08:00 Lisinopril (Zestril) 10 mg DAILY ORAL 11/28/17 09:00 12/28/17 08:59 11/29/17 07:59 Lorazepam (Ativan 2mg/ml 1ml) 0.5 mg Q4H PRN IV For Anxiety 11/27/17 10:30 12/04/17 10:29 Nitroglycerin (Ntg) 0.4 mg Q5M X 3 DOSES PRN SL Prn Chest Pain 11/27/17 10:30 12/27/17 10:29 Ondansetron HCl (Zofran) 4 mg Q6H PRN IVP Nausea & Vomiting 11/27/17 10:30 12/27/17 10:29 Polyethylene Glycol (Miralax) 17 gm HSPRN PRN ORAL Constipation 11/27/17 10:30 12/27/17 10:29 Promethazine HCl/ Codeine (Phenergan with Codeine) 5 ml Q4H PRN ORAL For Cough 11/27/17 10:30 12/27/17 10:29 Temazepam (Restoril) 15 mg HSPRN PRN ORAL Insomnia 11/27/17 10:30 12/04/17 10:29 ANALY REESE Nov 29, 2017 12:15
--- NOTE | 2017-11-29 12:37 | Consultation ---
Consult Note Consult Note NEUROLOGY CONSULTATION: Full note dictated #[id number] 52 y/o, RH, BM with PH of HTN, asthma, 3 prior strokes with left sided weakness and altered sensations who was hospitalized for an episode of LOC and increased left sided weakness and altered sensation. When he fell down he hurt his left hip which is still very painful, ON EXAM Give way weakness in left UE and LE Subjective alteration in sensation over left hemibody. Globally diminished but symmetric DTRs Needs support to stand. Unable to walk due to left leg pain. IMPRESSION: Episode of LOC - unclear etiology. Increased left sided weakness and altered sensation - etiology unclear. REC: MRI of brain to evaluate increased left sided weakness and altered sensation. Mobilize with PT. Shabbir Demarco M.D., M.S.P.Kimberly. SHABBIR DEMARCO Nov 29, 2017 12:37
[2017-11-29] MEDS ORDERED: LORazepam Inj 2mg/ml 1ml IV ONE (13:30)
--- NOTE | 2017-11-29 15:59 | Diagnostic Imaging Report ---
Indication: Altered mental status, possible CVA Technique: sagittal T1 fast spin echo, axial T1 FLAIR, axial T2 FLAIR, axial T2 FS PROPELLER, axial T2* GRE, axial diffusion weighted images. ADC and exponential ADC maps generated Comparison: CT dated 11/27/2017 Findings: No abnormal areas of restricted diffusion to suggest acute infarction. No acute hemorrhage or edema. No mass effect nor midline shift. There is age-related enlargement of the ventricles and extra axial CSF spaces. There is minimal periventricular deep white matter high T2 signal, most notable on the T2 FLAIR images, consistent with chronic ischemic changes. The vascular flow voids are preserved. The optic globes are intact. There is minimal sinus disease in the ethmoids. Visualized orbits and sinuses are unremarkable. Impression: Mild chronic and age-related changes as described Negative for acute intracranial bleed, mass effect, or infarct
[2017-11-29 16:00] VITALS: BP 106/69
--- NOTE | 2017-11-29 18:46 | Cardiology Progress Note ---
Assessment/Plan Assessment/Plan 1. Questionable syncope. 2. Paroxysmal episodes of atrial fibrillation. 3. Diabetes mellitus. 4. Hypertension. 5. There is knee injury. 6. Coagulopathy secondary to Xarelto. 7. Gout. 8. Hyponatremia history bp has been documented as being low sometimes will dc lisnopril tele short svt ? afib no recorded conversion pauses echo neg orthostatic vital were not done mri neg needs to get up and about to see how he does possible dc soon need diabetes control will start on glucopahge for now he has refused bedside glucose monitoring Subjective Cardiovascular: Denies: chest pain, lightheadedness, palpitations Respiratory: Denies: shortness of breath Gastrointestinal/Abdominal: Denies: abdominal pain Genitourinary: Denies: burning Subjective co hip pain Objective Last 24 Hour Vital Signs Date Time Temp Pulse Resp B/P (MAP) Pulse Ox O2 Delivery O2 Flow Rate FiO2 11/29/17 16:44 97.7 11/29/17 16:14 97.7 11/29/17 16:00 97.0 80 20 106/69 99 Room Air 97.0 11/29/17 16:00 77 11/29/17 12:11 97.7 11/29/17 12:00 97.5 79 20 115/72 99 Room Air 97.5 11/29/17 12:00 73 11/29/17 08:00 79 11/29/17 08:00 97.7 11/29/17 07:59 136/79 11/29/17 07:50 97.7 77 20 136/79 98 Room Air 97.7 11/29/17 07:38 78 18 Room Air 21 11/29/17 05:00 66 11/29/17 04:51 78 11/29/17 04:00 66 11/29/17 04:00 98.9 71 20 90/54 97 Room Air 98.9 11/29/17 00:00 71 11/29/17 00:00 97.0 76 20 105/59 93 Room Air 97.0 11/28/17 23:04 97.2 11/28/17 20:31 74 18 Room Air 11/28/17 20:00 76 11/28/17 20:00 97.2 67 20 89/60 87 Room Air 97.2 11/28/17 18:56 97.2 General Appearance: alert Neck: supple Cardiovascular: normal rate, regular rhythm Respiratory/Chest: lungs clear, normal breath sounds Abdomen: normal bowel sounds, non tender, soft Extremities: no swelling Intake and Output 11/28/17 11/29/17 19:00 07:00 Intake Total 600 ml Output Total 1400 ml 1000 ml Balance -800 ml -1000 ml Intake Oral 600 ml Output Urine Total 1400 ml 1000 ml Laboratory Tests Test 11/29/17 04:05 Hemoglobin A1c 11.0 % (4.3-6.0) H Cortisol AM Sample Pending ALBERTO THOMAS Nov 29, 2017 18:46
[2017-11-29 20:00] VITALS: BP 113/74
--- NOTE | 2017-11-29 20:15 | Consultation ---
DATE OF CONSULTATION: 11/29/2017 NEUROLOGY CONSULTATION CONSULTING PHYSICIAN: Jatin Demarco M.D. REQUESTING PHYSICIAN: Tania Doyle M.D. HISTORY: Mr. Melanie Steven is a 52-year-old, right-handed, black gentleman who does have a past history of hypertension, asthma, and three prior strokes with left-sided weakness and altered sensations. He was hospitalized for an episode of loss of consciousness where he apparently fell down on his left side and since then he has had increased left-sided weakness and altered sensation. When he fell down, he says that he hurt his left hip and hip is still very painful making it exceedingly difficult for him to walk. This consultation was requested to evaluate the patient for his episode of loss of consciousness. The patient does not remember what exactly transpired before he fell down. He found himself on the floor on his left side. He is not certain as to how long he may have passed out, but he is certain that it could not have been more than a few hours. With regards to his three prior strokes, he says that all of them were associated with exactly the similar symptoms. The first stroke occurred approximately two years ago and he was weak on his left side and his entire left body felt numb. The second stroke was a few months later and again caused increased weakness and numbness over his left body. The third stroke also caused similar findings and at that time he was apparently seen at [facility] and then sent to [facility] where he got TPA. PAST MEDICAL HISTORY: Significant for hypertension, asthma, three prior strokes all causing similar symptoms. In his chart, he also has a history of diabetes mellitus, which he denies. There is also history of coronary artery disease as per his chart. FAMILY HISTORY: Significant for high blood pressure in numerous family members. PERSONAL HISTORY: Home: He lives with a friend. 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 Habits: He smokes 3 to 4 cigarettes per day. He used to smoke larger quantities in the past. He denies use of alcohol or illicit drugs. PRESENT MEDICATIONS: Include [place] q.6 h. p.r.n. pain, lisinopril, heparin for DVT prophylaxis, Benadryl p.r.n., Dilaudid p.r.n., MiraLAX p.r.n., Zofran p.r.n., Ativan p.r.n., Restoril p.r.n., nitroglycerin p.r.n., clonidine p.r.n., and Phenergan with codeine p.r.n. PHYSICAL EXAMINATION: GENERAL: He is a well-developed and well-nourished, black gentleman, lying in bed, in no acute distress. VITAL SIGNS: Pulse is 79 per minute, blood pressure 136/79 mmHg, respirations 20 per minute, and temperature 97.7 degrees Fahrenheit. HEAD: Normocephalic and atraumatic. NECK: No neck rigidity was observed. EENT: Benign. NEUROLOGIC EXAMINATION: MENTAL STATUS EXAMINATION: He was awake and alert. He was oriented to person, place, and time. He was able to recall 3/3 words immediately after 1 minute and after 3 minutes on the second trial. He was able to remember presidents, Trump through Lind senior with hints. His mathematical skills were minimally impaired. His visuospatial function was also minimally impaired. SPEECH: He had no dysarthria. LANGUAGE: He had no aphasia. CRANIAL NERVE EXAMINATION: II: The visual willard were intact on confrontation testing. III, IV & : The external ocular movements were full and the pupils 3 mm in diameter, equal, round, regular, and reactive to light. V: The temporales, masseters, and pterygoids functioned normally. He complained of altered sensations over his left hemiface. VII: He had normal facial expressions with no facial asymmetry. VIII: He was able to hear well bilaterally and had no nystagmus. IX: The palate moved symmetrically on phonation. X: He had no hoarseness of voice. XI: The sternocleidomastoids and trapezii functioned normally. XII: The tongue was in the midline without any fasciculations or atrophy. MOTOR SYSTEM: The tone was normal in all four extremities. Examination of muscle mass revealed no focal wasting. Examination of power revealed grade 5/5 power on the right side. On the left side, he had approximately grade 4/5 power with a significant amount of give-away weakness, making accurate testing of power on the left side impossible. SENSORY EXAMINATION: He complained of altered sensations to light touch over his entire left hemibody. REFLEXES: 1+ and bilaterally symmetrical at the biceps, triceps, brachioradialis, and knees, 0 at both ankles. The plantar responses were flexor bilaterally. COORDINATION: He performed well on [id number] testing. He was unable to perform [id number] testing. STANCE: He stood up with support on both sides. GAIT: He refused to walk even with support because he said that his left hip was very painful. DIAGNOSTIC IMPRESSION: 1. Mr. Melanie Steven is a 52-year-old, right-handed, black gentleman, who does have a past history of hypertension, cerebrovascular disease with three prior strokes, by chart diabetes mellitus, and coronary artery disease,who was hospitalized after he apparently lost consciousness and fell down on the floor. He has since also complained of increased left-sided weakness and altered sensation. 2. On neurological examination, at this time, he does have mild problems with memory, higher cognitive function, and visuospatial function. He also complains of altered sensation over his left hemiface. He has give-away weakness over his entire left body and complains of altered sensations over the left hemibody. His deep tendon reflexes are globally diminished, but symmetrical. He needs support to stand up and he is unable to walk because of pain in his left hip. 3. CT scan of the brain without contrast is benign. 4. At this point in time, it is unclear as to why he had this episode of loss of consciousness and in addition has been feeling that his left side is weaker and more altered with regards to sensations. A new cerebrovascular event should be excluded. RECOMMENDATIONS: 1. The patient was given an explanation of the above-mentioned findings. 2. An MRI scan of the brain will be ordered to evaluate the patient for acute intracranial pathology. 3. The patient should be mobilized with the help of physical therapy. 4. Depending on how the patient fares over the next day or so, further recommendations will be given. Thank you for entrusting me with the care of Mr. Steven. I shall follow him with you. Jatin Demarco M.D., M.S.P.H. DR: Ho JOB#: [id number] [facility] NETWORK[facility]
[2017-11-29] MEDS: Dyna-Hex 2% Top Sol 2oz TOPIC SCH (20:17)
[2017-11-30] VITALS (8 sets, daily range): BP systolic 102–125; BP diastolic 58–85
[2017-11-30] MEDS: metFORMIN 500mg tab ORAL SCH ×2 (08:36→17:13)
[2017-11-30] MEDS: Heparin 5000 units/ml inj SUBQ SCH ×3 (08:39→21:15)
[2017-11-30] MEDS ORDERED: Lisinopril 10mg tab ORAL SCH (09:00)
--- NOTE | 2017-11-30 09:00 | Pulmonology Progress Note ---
Assessment/Plan Problems: (1) Syncope (2) Diabetes mellitus (3) CVA (cerebral infarction) Assessment/Plan neuro and cardio evaluation appreciated symptomatic treatment check labs continue current meds Pain consult appreciated MRI ordered by Neurology showed chronic changes pt claims, he cant stand or walk, will get PT evaluation. ordered previously med/surg Subjective ROS Limited/Unobtainable: No Constitutional: Reports: no symptoms HEENT: Repors: no symptoms Respiratory: Reports: no symptoms Allergies: Coded Allergies: ACETAMINOPHEN (Unverified Allergy, Unknown, 04/02/15) IBUPROFEN (Unverified Allergy, Unknown, 12/04/14) KETOROLAC (Unverified Allergy, Unknown, 12/04/14) Objective Last 24 Hour Vital Signs Date Time Temp Pulse Resp B/P (MAP) Pulse Ox O2 Delivery O2 Flow Rate FiO2 11/30/17 08:36 113/73 11/30/17 08:00 97.7 76 20 113/73 97 Room Air 97.7 11/30/17 06:15 97.5 11/30/17 04:00 71 11/30/17 04:00 97.5 74 19 102/71 95 Room Air 97.5 11/30/17 00:00 72 11/30/17 00:00 97.0 74 19 119/64 94 Room Air 97.0 11/29/17 21:00 90 11/29/17 20:00 76 11/29/17 20:00 97.7 77 19 113/74 100 Room Air 97.7 11/29/17 16:14 97.7 11/29/17 16:00 97.0 80 20 106/69 99 Room Air 97.0 11/29/17 16:00 77 11/29/17 12:11 97.7 11/29/17 12:00 97.5 79 20 115/72 99 Room Air 97.5 11/29/17 12:00 73 Intake and Output 11/29/17 11/30/17 19:00 07:00 Intake Total 590 ml 350 ml Output Total 925 ml 750 ml Balance -335 ml -400 ml Intake Oral 590 ml 350 ml Output Urine Total 925 ml 750 ml # Voids 2 Objective General Appearance: WD/WN, no apparent distress Lines, tubes and drains: peripheral HEENT: normocephalic, atraumatic Neck: non-tender, normal alignment Respiratory/Chest: chest wall non-tender, lungs clear Breasts: no masses Cardiovascular/Chest: normal peripheral pulses Abdomen: normal bowel sounds, non tender Genitourinary/Rectal: normal genital exam Extremities: normal range of motion Skin Exam: normal pigmentation Current Medications Medications (Trade) Dose Ordered Sig/Dino Route PRN Reason Start Time Stop Time Status Last Admin Dose Admin Acetaminophen/ Hydrocodone Bitart ([place] 10/325) 1 tab Q6H PRN ORAL Moderate Pain (Pain Scale 4-6) 11/29/17 10:00 12/06/17 09:59 Al Hydroxide/Mg Hydroxide (Mylanta II) 30 ml Q6H PRN ORAL dyspepsia 11/27/17 10:30 12/27/17 10:29 Albuterol/ Ipratropium (Albuterol/ Ipratropium) 3 ml EVERY 4 HOURS PRN HHN Shortness of Breath 11/27/17 10:30 12/02/17 10:29 Chlorhexidine Gluconate (Ros-Hex 2%) 1 applic DAILY@2000 TOPIC 11/28/17 20:00 12/28/17 19:59 11/29/17 20:17 Clonidine HCl (Catapres Tab) 0.1 mg Q4H PRN ORAL For High Blood Pressure 11/27/17 10:30 12/27/17 10:29 Dextrose (Dextrose 50%) STAT PRN IV Hypoglycemia 11/27/17 10:30 12/27/17 10:29 Diphenhydramine HCl (Benadryl) 25 mg Q6H PRN IVP Itching 11/27/17 14:00 12/27/17 13:59 Heparin Sodium (Porcine) (Heparin 5000 units/ml) 5,000 units EVERY 12 HOURS SUBQ 11/27/17 21:00 12/27/17 20:59 11/30/17 08:39 Hydromorphone HCl (Dilaudid) 1 mg Q4H PRN IVP Severe Pain (Pain Scale 7-10) 11/27/17 12:15 12/04/17 12:14 11/30/17 05:45 Lisinopril (Zestril) 2.5 mg DAILY ORAL 11/30/17 09:00 12/30/17 08:59 11/30/17 08:36 Lorazepam (Ativan 2mg/ml 1ml) 0.5 mg Q4H PRN IV For Anxiety 11/27/17 10:30 12/04/17 10:29 Metformin HCl (Glucophage) 500 mg BID ORAL 11/30/17 09:00 12/30/17 08:59 11/30/17 08:36 Nitroglycerin (Ntg) 0.4 mg Q5M X 3 DOSES PRN SL Prn Chest Pain 11/27/17 10:30 12/27/17 10:29 Ondansetron HCl (Zofran) 4 mg Q6H PRN IVP Nausea & Vomiting 11/27/17 10:30 12/27/17 10:29 Polyethylene Glycol (Miralax) 17 gm HSPRN PRN ORAL Constipation 11/27/17 10:30 12/27/17 10:29 Promethazine HCl/ Codeine (Phenergan with Codeine) 5 ml Q4H PRN ORAL For Cough 11/27/17 10:30 12/27/17 10:29 Temazepam (Restoril) 15 mg HSPRN PRN ORAL Insomnia 11/27/17 10:30 12/04/17 10:29 ANALY REESE Nov 30, 2017 09:00
--- NOTE | 2017-11-30 15:22 | Neurology Progress Note ---
Interim History Interim History Interim History Mr. Steven feels unwell. He complains of increased left hip discomfort. He has noted no improvement in his left sided weakness. He also continues to have altered sensations over his left body. He denies any new neurologic symptoms. Review of Systems Neuro Review of Systems Benign. Objective Physical Exam Last Vital Signs Date Time Temp Pulse Resp B/P (MAP) Pulse Ox O2 Delivery O2 Flow Rate FiO2 11/30/17 12:00 97.2 69 20 113/58 97 Room Air 97.2 11/29/17 07:38 21 Neurologic Exam Objective PHYSICAL EXAMINATION: GENERAL: He is a well-developed and well-nourished, black gentleman, lying in bed, in no acute distress. HEAD: Normocephalic and atraumatic. NECK: No neck rigidity was observed. EENT: Benign. NEUROLOGIC EXAMINATION: MENTAL STATUS EXAMINATION: He was awake and alert. He was oriented to person, place, and time. He was able to recall 3/3 words immediately after 1 minute and after 3 minutes on the second trial. He was able to remember presidents, Trump through [employer] senior with hints. His mathematical skills were minimally impaired. His visuospatial function was also minimally impaired. SPEECH: He had no dysarthria. LANGUAGE: He had no aphasia. CRANIAL NERVE EXAMINATION: II: The visual willard were intact on confrontation testing. III, IV & : The external ocular movements were full and the pupils 3 mm in diameter, equal, round, regular, and reactive to light. V: The temporales, masseters, and pterygoids functioned normally. He complained of altered sensations over his left hemiface. VII: He had normal facial expressions with no facial asymmetry. VIII: He was able to hear well bilaterally and had no nystagmus. IX: The palate moved symmetrically on phonation. X: He had no hoarseness of voice. XI: The sternocleidomastoids and trapezii functioned normally. XII: The tongue was in the midline without any fasciculations or atrophy. MOTOR SYSTEM: The tone was normal in all four extremities. Examination of muscle mass revealed no focal wasting. Examination of power revealed grade 5/5 power on the right side. On the left side, he had approximately grade 4/5 power with a significant amount of give-away weakness, making accurate testing of power on the left side impossible. SENSORY EXAMINATION: He complained of altered sensations to light touch over his entire left hemibody. REFLEXES: 1+ and bilaterally symmetrical at the biceps, triceps, brachioradialis , and knees, 0 at both ankles. The plantar responses were flexor bilaterally. COORDINATION: He performed well on [id number]-[id number] testing. He was unable to perform [id number]-[id number]-[id number] testing. STANCE & GAIT: He refused to stand and walk. Impression/Recommendations Diagnostic Impression 1. Mr. Melanie Steven is a 52-year-old, right-handed, black gentleman, who does have a past history of hypertension, cerebrovascular disease with three prior strokes, by chart diabetes mellitus, and coronary artery disease,who was hospitalized after he apparently lost consciousness and fell down on the floor. He has since also complained of increased left-sided weakness and altered sensation. 2. He feels unwell. He complains of increased left hip discomfort. He has noted no improvement in his left sided weakness. He also continues to have altered sensations over his left body.He denies any new neurologic symptoms. 3. On neurological examination, at this time, he does have mild problems with memory, higher cognitive function, and visuospatial function. He also complains of altered sensation over his left hemiface. He has give-away weakness over his entire left body and complains of altered sensations over the left hemibody. His deep tendon reflexes are globally diminished, but symmetrical. He refuses to stand and walk. 4. CT scan of the brain without contrast is benign. 5. The MRI of the brain reveals no acute or chronic infarcts. Mild ischemic CVD is seen. 6. It is unclear as to why he had this episode of loss of consciousness. 7. It is also unclear as to why he is weak and has altered sensations over his left side. Imaging has failed to reveal acute or chronic pathology to explain his symptoms. Recommendations 1. The patient was reassured that the MRI revealed no acute or chronic pathology to explain his signs and symptoms. 2. The patient should be mobilized with the help of physical therapy. 3. Consider psychiatric help. Shabbir Butcher M.D., M.S.P.Kimberly. HSABBIR BUTCHER Nov 30, 2017 15:22
--- NOTE | 2017-11-30 15:24 | Cardiology Progress Note ---
Assessment/Plan Assessment/Plan stable from cardiiac standpoint the patient is running high BS, and is in denieal Subjective Subjective the paitent is sleeping after receiving pain medication he denies chest pain or dyspena Objective Last 24 Hour Vital Signs Date Time Temp Pulse Resp B/P (MAP) Pulse Ox O2 Delivery O2 Flow Rate FiO2 11/30/17 12:00 97.2 69 20 113/58 97 Room Air 97.2 11/30/17 12:00 70 11/30/17 08:36 113/73 11/30/17 08:07 77 16 Room Air 11/30/17 08:00 79 11/30/17 08:00 97.7 76 20 113/73 97 Room Air 97.7 11/30/17 06:15 97.5 11/30/17 04:00 71 11/30/17 04:00 97.5 74 19 102/71 95 Room Air 97.5 11/30/17 00:00 72 11/30/17 00:00 97.0 74 19 119/64 94 Room Air 97.0 11/29/17 21:00 90 11/29/17 20:00 76 11/29/17 20:00 97.7 77 19 113/74 100 Room Air 97.7 11/29/17 16:14 97.7 11/29/17 16:00 97.0 80 20 106/69 99 Room Air 97.0 11/29/17 16:00 77 General Appearance: no apparent distress EENT: PERRL/EOMI Neck: supple Rhythm: NSR Cardiovascular: normal rate Respiratory/Chest: crackles/rales Abdomen: normal bowel sounds Intake and Output 11/29/17 11/30/17 19:00 07:00 Intake Total 590 ml 350 ml Output Total 925 ml 750 ml Balance -335 ml -400 ml Intake Oral 590 ml 350 ml Output Urine Total 925 ml 750 ml # Voids 2 PAGE JADE Nov 30, 2017 15:24
[2017-11-30] MEDS ORDERED: D5 1/2NS 1000ml IV ONE (16:05)
[2017-11-30] MEDS ORDERED: NS 275ml ONE (16:05)
[2017-11-30] MEDS ORDERED: Tubing IV Secondary IV ONE (16:05)
[2017-11-30] MEDS: Dyna-Hex 2% Top Sol 2oz TOPIC SCH (20:00)
[2017-11-30] MEDS ORDERED: Nitroglycerin Subl 0.4mg tab SL PRN (21:15)
[2017-11-30] MEDS ORDERED: HYDROcodone/Acetamin 10/325 tab ORAL PRN (22:00)
[2017-11-30] MEDS ORDERED: Mylanta II UD 30ml ORAL PRN (22:30)
[2017-11-30] MEDS ORDERED: Promethazine/Codeine 5ml UD ORAL PRN (22:30)
[2017-11-30] MEDS ORDERED: LORazepam Inj 2mg/ml 1ml IV PRN (22:30)
[2017-12-01] MEDS ORDERED: Albuterol/Ipratropium 3ml neb HHN PRN (01:00)
[2017-12-01] MEDS ORDERED: DiphenhydrAMINE 50mg/ml Inj IVP PRN (02:00)
[2017-12-01 04:11] VITALS: BP 115/74
[2017-12-01 06:14] LABS: BASOPHILS % (AUTO) 0.7 % (0.0-2.0); EOSINOPHILS % (AUTO) 1.7 % (0.0-3.0); HEMATOCRIT 39.3 % (42.0-52.0); HEMOGLOBIN 13.1 G/DL (14.2-18.0); LYMPHOCYTES % (AUTO) 34.4 % (20.0-45.0); MEAN CORPUSCULAR VOLUME 84 FL (80-99); MONOCYTES % (AUTO) 8.3 % (1.0-10.0); NEUTROPHILS % (AUTO) 54.9 % (45.0-75.0); PLATELET COUNT 208 K/UL (150-450); RED BLOOD COUNT 4.69 M/UL (4.70-6.10); RED CELL DISTRIBUTION WIDTH 12.3 % (11.6-14.8); WHITE BLOOD COUNT 5.8 K/UL (4.8-10.8)
[2017-12-01 06:51] LABS: ALANINE AMINOTRANSFERASE 41 U/L (12-78); ALBUMIN/GLOBULIN RATIO 0.8 (1.0-2.7); ALKALINE PHOSPHATASE 152 U/L (46-116); ANION GAP 3 mmol/L (5-15); ASPARTATE AMINO TRANSFERASE 15 U/L (15-37); BILIRUBIN,TOTAL 0.1 MG/DL (0.2-1.0); BLOOD UREA NITROGEN 26 mg/dL (7-18); CALCIUM 9.2 MG/DL (8.5-10.1); CARBON DIOXIDE 31 MMOL/L (21-32); CHLORIDE 100 MMOL/L (98-107); POTASSIUM 4.4 MMOL/L (3.5-5.1); SODIUM 134 MMOL/L (136-145)
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
[2017-12-01 07:55] VITALS: BP 121/76
[2017-12-01 07:56] VITALS: BP 142/77
[2017-12-01] MEDS: Lisinopril 10mg tab ORAL SCH (08:09)
[2017-12-01] MEDS: Heparin 5000 units/ml inj SUBQ SCH ×2 (08:12→20:09)
[2017-12-01] MEDS: Levemir Flexpen SUBQ SCH (08:48)
[2017-12-01] MEDS: metFORMIN 500mg tab ORAL SCH ×2 (08:48→17:44)
--- NOTE | 2017-12-01 10:13 | General Progress Note ---
Assessment/Plan Assessment/Plan (1) H/o CVA (2) Neuropathic pain (3) H/o cocaine abuse (4) Lumbar DDD (5) Lumbar spondylosis (6) Lumbar Radiculopathy Pt to be continued on [place] and Dilaudid D/w Dr. Khan and he concurred. Subjective Date patient seen: Dec 01, 2017 Time patient seen: 08:30 - am Allergies: Coded Allergies: ACETAMINOPHEN (Unverified Allergy, Unknown, 04/02/15) IBUPROFEN (Unverified Allergy, Unknown, 12/04/14) KETOROLAC (Unverified Allergy, Unknown, 12/04/14) Subjective REVIEW OF SYSTEMS: Denies rash, fever, chills, sweating, dizziness, drowsiness, blurred vision, sore throat, or change in weight. No shortness of breath or chest pain. No nausea, vomiting, or blood in the stool or urine. No bowel or bladder incontinence. No dysuria. He is complaining of generalized body pain. SUBJECTIVE: Patient is comfortable and tolerating pain on the Dilaudid and [place]. Objective Last 24 Hour Vital Signs Date Time Temp Pulse Resp B/P (MAP) Pulse Ox O2 Delivery O2 Flow Rate FiO2 12/01/17 08:38 97.6 12/01/17 08:09 142/77 12/01/17 08:08 97.6 12/01/17 07:57 12/01/17 07:56 78 142/77 12/01/17 07:55 97.6 73 18 121/76 94 Room Air 97.6 12/01/17 07:45 73 16 Room Air 21 12/01/17 04:11 98.3 78 18 115/74 98 Room Air 98.3 11/30/17 21:05 98.2 87 18 120/73 95 Room Air 98.2 11/30/17 20:00 98.2 87 20 103/65 97 Room Air 98.2 11/30/17 19:30 74 16 Room Air 21 11/30/17 16:00 97.9 78 18 117/82 100 Room Air 97.9 11/30/17 12:00 97.2 69 20 113/58 97 Room Air 97.2 11/30/17 12:00 70 Intake and Output 11/30/17 12/01/17 19:00 07:00 Intake Total 480 ml 240 ml Output Total 1100 ml 800 ml Balance -620 ml -560 ml Intake Oral 480 ml 240 ml Output Urine Total 1100 ml 800 ml Laboratory Tests 12/01/17 05:35: White Blood Count 5.8, Red Blood Count 4.69L, Hemoglobin 13.1L, Hematocrit 39.3L , Mean Corpuscular Volume 84, Mean Corpuscular Hemoglobin 27.9, Mean Corpuscular Hemoglobin Concent 33.4, Red Cell Distribution Width 12.3, Platelet Count 208, Mean Platelet Volume 6.1L, Neutrophils (%) (Auto) 54.9, Lymphocytes ( %) (Auto) 34.4, Monocytes (%) (Auto) 8.3, Eosinophils (%) (Auto) 1.7, Basophils (%) (Auto) 0.7, Sodium Level 134L, Potassium Level 4.4, Chloride Level 100, Carbon Dioxide Level 31, Anion Gap 3L, Blood Urea Nitrogen 26H, Creatinine 1.0, Estimat Glomerular Filtration Rate > 60, Glucose Level 330H, Calcium Level 9.2, Total Bilirubin 0.1L, Aspartate Amino Transf (AST/SGOT) 15, Alanine Aminotransferase (ALT/SGPT) 41, Alkaline Phosphatase 152H, Total Protein 7.0, Albumin 3.0L, Globulin 4.0, Albumin/Globulin Ratio 0.8L Height (Feet): 5 Height (Inches): 8.00 Weight (Pounds): 153 Objective GENERAL: Alert, awake, and oriented. LUNGS: Decreased breath sounds bilaterally. HEART: S1 and S2 regular. ABDOMEN: Benign. EXTREMITIES: No cyanosis. No clubbing. NEUROLOGICAL: No changes. MARIBEL FITZGERALD Dec 01, 2017 10:13
[2017-12-01] MEDS ORDERED: Miralax 17gm pkt ORAL PRN (10:30)
--- NOTE | 2017-12-01 11:19 | Neurology Progress Note ---
Interim History Interim History Interim History Mr. Steven continues to feel unwell. The left hip pain and discomfort are worse. He has noted no improvement in his left sided weakness. He also continues to have altered sensations over his left body. He denies any new neurologic symptoms. He stays in bed all the time. He has not been out of bed. Review of Systems Neuro Review of Systems Benign. Objective Physical Exam Last Vital Signs Date Time Temp Pulse Resp B/P (MAP) Pulse Ox O2 Delivery O2 Flow Rate FiO2 12/01/17 08:38 97.6 12/01/17 08:09 142/77 12/01/17 07:56 78 12/01/17 07:55 18 94 Room Air 12/01/17 07:45 21 Laboratory Tests Test 12/01/17 05:35 White Blood Count 5.8 K/UL (4.8-10.8) Red Blood Count 4.69 M/UL (4.70-6.10) L Hemoglobin 13.1 G/DL (14.2-18.0) L Hematocrit 39.3 % (42.0-52.0) L Mean Corpuscular Volume 84 FL (80-99) Mean Corpuscular Hemoglobin 27.9 PG (27.0-31.0) Mean Corpuscular Hemoglobin Concent 33.4 G/DL (32.0-36.0) Red Cell Distribution Width 12.3 % (11.6-14.8) Platelet Count 208 K/UL (150-450) Mean Platelet Volume 6.1 FL (6.5-10.1) L Neutrophils (%) (Auto) 54.9 % (45.0-75.0) Lymphocytes (%) (Auto) 34.4 % (20.0-45.0) Monocytes (%) (Auto) 8.3 % (1.0-10.0) Eosinophils (%) (Auto) 1.7 % (0.0-3.0) Basophils (%) (Auto) 0.7 % (0.0-2.0) Sodium Level 134 MMOL/L (136-145) L Potassium Level 4.4 MMOL/L (3.5-5.1) Chloride Level 100 MMOL/L (98-107) Carbon Dioxide Level 31 MMOL/L (21-32) Anion Gap 3 mmol/L (5-15) L Blood Urea Nitrogen 26 mg/dL (7-18) H Creatinine 1.0 MG/DL (0.55-1.30) Estimat Glomerular Filtration Rate > 60 mL/min (>60) Glucose Level 330 MG/DL (74-106) H Calcium Level 9.2 MG/DL (8.5-10.1) Total Bilirubin 0.1 MG/DL (0.2-1.0) L Aspartate Amino Transf (AST/SGOT) 15 U/L (15-37) Alanine Aminotransferase (ALT/SGPT) 41 U/L (12-78) Alkaline Phosphatase 152 U/L (46-116) H Total Protein 7.0 G/DL (6.4-8.2) Albumin 3.0 G/DL (3.4-5.0) L Globulin 4.0 g/dL Albumin/Globulin Ratio 0.8 (1.0-2.7) L Neurologic Exam Objective PHYSICAL EXAMINATION: GENERAL: He is a well-developed and well-nourished, black gentleman, lying in bed, in no acute distress. HEAD: Normocephalic and atraumatic. NECK: No neck rigidity was observed. EENT: Benign. NEUROLOGIC EXAMINATION: MENTAL STATUS EXAMINATION: He was awake and alert. He was oriented to person, place, and time. He was able to recall 3/3 words immediately after 1 minute and after 3 minutes on the second trial. He was able to remember presidents, Trump through Lind senior with hints. His mathematical skills were minimally impaired. His visuospatial function was also minimally impaired. SPEECH: He had no dysarthria. LANGUAGE: He had no aphasia. CRANIAL NERVE EXAMINATION: II: The visual willard were intact on confrontation testing. III, IV & : The external ocular movements were full and the pupils 3 mm in diameter, equal, round, regular, and reactive to light. V: The temporales, masseters, and pterygoids functioned normally. He complained of altered sensations over his left hemiface. VII: He had normal facial expressions with no facial asymmetry. VIII: He was able to hear well bilaterally and had no nystagmus. IX: The palate moved symmetrically on phonation. X: He had no hoarseness of voice. XI: The sternocleidomastoids and trapezii functioned normally. XII: The tongue was in the midline without any fasciculations or atrophy. MOTOR SYSTEM: The tone was normal in all four extremities. Examination of muscle mass revealed no focal wasting. Examination of power revealed grade 5/5 power on the right side. On the left side, he had approximately grade 4/5 power with a significant amount of give-away weakness, making accurate testing of power on the left side impossible. SENSORY EXAMINATION: He complained of altered sensations to light touch over his entire left hemibody. REFLEXES: 1+ and bilaterally symmetrical at the biceps, triceps, brachioradialis , and knees, 0 at both ankles. The plantar responses were flexor bilaterally. COORDINATION: He performed well on [id number] testing. He was unable to perform [id number] testing. STANCE & GAIT: He refused to stand and walk. Impression/Recommendations Diagnostic Impression 1. Mr. Melanie Steven is a 52-year-old, right-handed, black gentleman, who does have a past history of hypertension, cerebrovascular disease with three prior strokes, by chart diabetes mellitus, and coronary artery disease,who was hospitalized after he apparently lost consciousness and fell down on the floor. He has since also complained of increased left-sided weakness and altered sensation. 2. He feels unwell. He complains of increased left hip discomfort and pain. He has noted no improvement in his left sided weakness. He also continues to have altered sensations over his left body.He denies any new neurologic symptoms. 3. On neurological examination, at this time, he does have mild problems with memory, higher cognitive function, and visuospatial function. He also complains of altered sensation over his left hemiface. He has give-away weakness over his entire left body and complains of altered sensations over the left hemibody. His deep tendon reflexes are globally diminished, but symmetrical. He refuses to stand and walk. 4. CT scan of the brain without contrast is benign. 5. The MRI of the brain reveals no acute or chronic infarcts. Mild old ischemic CVD is seen. 6. It is unclear as to why he had this episode of loss of consciousness. 7. It is also unclear as to why he is weak and has altered sensations over his left side. Imaging has failed to reveal acute or chronic pathology to explain his symptoms. Recommendations 1. The patient was again reassured that the MRI revealed no acute or chronic pathology to explain his signs and symptoms. 2. The patient should be mobilized with the help of physical therapy. 3. Consider psychiatric help. Shabbir Butcher M.D., M.S.P.H. SHABBIR BUTCHER Dec 01, 2017 11:19
[2017-12-01] MEDS: NovoLOG Insulin Flexpen SUBQ SCH ×3 (11:30→20:10)
[2017-12-01 12:00] VITALS: BP 113/72
[2017-12-01 16:53] VITALS: BP 99/63
--- NOTE | 2017-12-01 17:32 | Pulmonology Progress Note ---
Assessment/Plan Problems: (1) Syncope (2) Diabetes mellitus (3) CVA (cerebral infarction) Assessment/Plan neuro and cardio evaluation appreciated symptomatic treatment check labs continue current meds Pain consult appreciated MRI reviewed pt walking to bathroom by himself med/surg Subjective ROS Limited/Unobtainable: No Constitutional: Reports: no symptoms, fatigue, anorexia HEENT: Repors: no symptoms Respiratory: Reports: no symptoms Allergies: Coded Allergies: ACETAMINOPHEN (Unverified Allergy, Unknown, 04/02/15) IBUPROFEN (Unverified Allergy, Unknown, 12/04/14) KETOROLAC (Unverified Allergy, Unknown, 12/04/14) Objective Last 24 Hour Vital Signs Date Time Temp Pulse Resp B/P (MAP) Pulse Ox O2 Delivery O2 Flow Rate FiO2 12/01/17 16:53 98.4 78 21 99/63 Room Air 98.4 12/01/17 16:27 98.2 12/01/17 15:57 98.2 12/01/17 12:00 98.2 75 20 113/72 96 Room Air 98.2 12/01/17 12:00 96 Room Air 12/01/17 08:09 142/77 12/01/17 08:08 97.6 12/01/17 07:57 12/01/17 07:56 78 142/77 12/01/17 07:55 97.6 73 18 121/76 94 Room Air 97.6 12/01/17 07:45 73 16 Room Air 21 12/01/17 04:11 98.3 78 18 115/74 98 Room Air 98.3 11/30/17 21:05 98.2 87 18 120/73 95 Room Air 98.2 11/30/17 20:00 98.2 87 20 103/65 97 Room Air 98.2 11/30/17 19:30 74 16 Room Air 21 Intake and Output 11/30/17 12/01/17 19:00 07:00 Intake Total 480 ml 240 ml Output Total 1100 ml 800 ml Balance -620 ml -560 ml Intake Oral 480 ml 240 ml Output Urine Total 1100 ml 800 ml Objective General Appearance: WD/WN, no apparent distress Lines, tubes and drains: peripheral HEENT: normocephalic, atraumatic Neck: non-tender, normal alignment Respiratory/Chest: chest wall non-tender, lungs clear Breasts: no masses Cardiovascular/Chest: normal peripheral pulses Abdomen: normal bowel sounds, non tender Genitourinary/Rectal: normal genital exam Extremities: normal range of motion Skin Exam: normal pigmentation Laboratory Tests 12/01/17 05:35: White Blood Count 5.8, Red Blood Count 4.69L, Hemoglobin 13.1L, Hematocrit 39.3L , Mean Corpuscular Volume 84, Mean Corpuscular Hemoglobin 27.9, Mean Corpuscular Hemoglobin Concent 33.4, Red Cell Distribution Width 12.3, Platelet Count 208, Mean Platelet Volume 6.1L, Neutrophils (%) (Auto) 54.9, Lymphocytes ( %) (Auto) 34.4, Monocytes (%) (Auto) 8.3, Eosinophils (%) (Auto) 1.7, Basophils (%) (Auto) 0.7, Sodium Level 134L, Potassium Level 4.4, Chloride Level 100, Carbon Dioxide Level 31, Anion Gap 3L, Blood Urea Nitrogen 26H, Creatinine 1.0, Estimat Glomerular Filtration Rate > 60, Glucose Level 330H, Calcium Level 9.2, Total Bilirubin 0.1L, Aspartate Amino Transf (AST/SGOT) 15, Alanine Aminotransferase (ALT/SGPT) 41, Alkaline Phosphatase 152H, Total Protein 7.0, Albumin 3.0L, Globulin 4.0, Albumin/Globulin Ratio 0.8L Current Medications Medications (Trade) Dose Ordered Sig/Dino Route PRN Reason Start Time Stop Time Status Last Admin Dose Admin Acetaminophen/ Hydrocodone Bitart ([place] 10/325) 1 tab Q6H PRN ORAL Moderate Pain (Pain Scale 4-6) 11/30/17 22:00 12/06/17 09:59 Al Hydroxide/Mg Hydroxide (Mylanta II) 30 ml Q6H PRN ORAL dyspepsia 11/30/17 22:30 12/27/17 10:29 Albuterol/ Ipratropium (Albuterol/ Ipratropium) 3 ml EVERY 4 HOURS PRN HHN Shortness of Breath 12/01/17 01:00 12/02/17 10:29 Chlorhexidine Gluconate (Ros-Hex 2%) 1 applic DAILY@2000 TOPIC 12/01/17 20:00 12/28/17 19:59 Clonidine HCl (Catapres Tab) 0.1 mg Q4H PRN ORAL For High Blood Pressure 11/30/17 22:30 12/27/17 10:29 Dextrose (Dextrose 50%) STAT PRN IV Hypoglycemia 12/01/17 10:30 12/27/17 10:29 Diphenhydramine HCl (Benadryl) 25 mg Q6H PRN IVP Itching 12/01/17 02:00 12/27/17 13:59 Heparin Sodium (Porcine) (Heparin 5000 units/ml) 5,000 units EVERY 12 HOURS SUBQ 11/30/17 21:15 12/27/17 20:59 12/01/17 08:12 Hydromorphone HCl (Dilaudid) 1 mg Q4H PRN IVP Severe Pain (Pain Scale 7-10) 12/01/17 00:15 12/04/17 12:14 12/01/17 15:57 Insulin Aspart (NovoLOG) BEFORE MEALS AND HS SUBQ 12/01/17 11:30 12/31/17 11:29 Insulin Detemir (Levemir) 10 units DAILY SUBQ 12/01/17 09:00 12/31/17 08:59 Lisinopril (Zestril) 2.5 mg DAILY ORAL 12/01/17 09:00 12/30/17 08:59 12/01/17 08:09 Lorazepam (Ativan 2mg/ml 1ml) 0.5 mg Q4H PRN IV For Anxiety 11/30/17 22:30 12/04/17 10:29 Metformin HCl (Glucophage) 500 mg BID ORAL 12/01/17 09:00 12/30/17 08:59 Nateglinide (Starlix) 120 mg TIAC ORAL 12/01/17 08:00 12/31/17 07:59 12/01/17 16:37 Nitroglycerin (Ntg) 0.4 mg Q5M X 3 DOSES PRN SL Prn Chest Pain 11/30/17 21:15 12/27/17 10:29 Ondansetron HCl (Zofran) 4 mg Q6H PRN IVP Nausea & Vomiting 11/30/17 22:30 12/27/17 10:29 Polyethylene Glycol (Miralax) 17 gm HSPRN PRN ORAL Constipation 12/01/17 10:30 12/27/17 10:29 Promethazine HCl/ Codeine (Phenergan with Codeine) 5 ml Q4H PRN ORAL For Cough 11/30/17 22:30 12/27/17 10:29 Sitagliptin Phosphate (Januvia) 100 mg ACBREAKFAST ORAL 12/01/17 11:30 12/31/17 11:29 12/01/17 12:15 Temazepam (Restoril) 15 mg HSPRN PRN ORAL Insomnia 12/01/17 10:30 12/04/17 10:29 ANALY REESE Dec 01, 2017 17:32
[2017-12-01] MEDS ORDERED: Dyna-Hex 2% Top Sol 2oz TOPIC SCH (20:00)
[2017-12-01 20:21] VITALS: BP 115/68
[2017-12-02] VITALS: BP 107/70
[2017-12-02 04:00] VITALS: BP 125/76
[2017-12-02] MEDS: NovoLOG Insulin Flexpen SUBQ SCH ×3 (06:07→16:30)
[2017-12-02 08:00] VITALS: BP 107/74
--- NOTE | 2017-12-02 08:14 | General Progress Note ---
Assessment/Plan Assessment/Plan (1) H/o CVA (2) Neuropathic pain (3) H/o cocaine abuse (4) Lumbar DDD (5) Lumbar spondylosis (6) Lumbar Radiculopathy Pt to be continued on [place] and Dilaudid D/w Dr. Khan and he concurred. Subjective Date patient seen: Dec 02, 2017 Time patient seen: 07:45 - am Allergies: Coded Allergies: ACETAMINOPHEN (Unverified Allergy, Unknown, 04/02/15) IBUPROFEN (Unverified Allergy, Unknown, 12/04/14) KETOROLAC (Unverified Allergy, Unknown, 12/04/14) Subjective REVIEW OF SYSTEMS: Denies rash, fever, chills, sweating, dizziness, drowsiness, blurred vision, sore throat, or change in weight. No shortness of breath or chest pain. No nausea, vomiting, or blood in the stool or urine. No bowel or bladder incontinence. No dysuria. He is complaining of generalized body pain. SUBJECTIVE: Patient reports that his pain continues to be severe however it has been reduced and tolerated on the Dilaudid and has no new complaints. Objective Last 24 Hour Vital Signs Date Time Temp Pulse Resp B/P (MAP) Pulse Ox O2 Delivery O2 Flow Rate FiO2 12/02/17 08:00 98.3 79 18 107/74 99 Room Air 98.3 12/02/17 04:00 98.1 80 18 125/76 99 Room Air 98.1 12/02/17 00:00 98.3 74 16 107/70 95 Room Air 98.3 12/01/17 20:21 97.8 76 18 115/68 97 Room Air 97.8 12/01/17 19:18 77 16 Room Air 21 12/01/17 16:53 98.4 78 21 99/63 97 Room Air 98.4 12/01/17 16:53 97 Room Air 12/01/17 16:27 98.2 12/01/17 15:57 98.2 12/01/17 12:00 98.2 75 20 113/72 96 Room Air 98.2 12/01/17 12:00 96 Room Air Intake and Output 12/01/17 12/02/17 19:00 07:00 Intake Total 400 ml 500 ml Output Total 700 ml Balance 400 ml -200 ml Intake Oral 500 ml Other 400 ml Output Urine Total 700 ml # Voids 3 # Bowel Movements 2 Height (Feet): 5 Height (Inches): 8.00 Weight (Pounds): 153 Objective GENERAL: Alert, awake, and oriented. LUNGS: Decreased breath sounds bilaterally. HEART: S1 and S2 regular. ABDOMEN: Benign. EXTREMITIES: No cyanosis. No clubbing. NEUROLOGICAL: No changes. MARIBEL FITZGERALD Dec 02, 2017 08:14
[2017-12-02] MEDS: metFORMIN 500mg tab ORAL SCH (08:16)
[2017-12-02] MEDS: Lisinopril 10mg tab ORAL SCH (08:16)
[2017-12-02] MEDS: Heparin 5000 units/ml inj SUBQ SCH (08:40)
[2017-12-02] MEDS: Levemir Flexpen SUBQ SCH (08:40)
--- NOTE | 2017-12-02 10:36 | Neurology Progress Note ---
Interim History Interim History Interim History Mr. Steven feels unwell. He says he has diarrhoea and has had 19 watery stools since last night as a result of which he has been unable to sleep. The left hip pain and discomfort are worse. He has noted no improvement in his left sided weakness. He also continues to have altered sensations over his left body. He denies any new neurologic symptoms. He only gets out of bed to go to the bathroom. Review of Systems Neuro Review of Systems Benign. Objective Physical Exam Last Vital Signs Date Time Temp Pulse Resp B/P (MAP) Pulse Ox O2 Delivery O2 Flow Rate FiO2 12/02/17 08:49 75 16 Room Air 21 12/02/17 08:16 110/70 12/02/17 08:00 98.3 99 98.3 Neurologic Exam Objective PHYSICAL EXAMINATION: GENERAL: He is a well-developed and well-nourished, black gentleman, lying in bed, in no acute distress. HEAD: Normocephalic and atraumatic. NECK: No neck rigidity was observed. EENT: Benign. NEUROLOGIC EXAMINATION: MENTAL STATUS EXAMINATION: He was awake and alert. He was oriented to person, place, and time. He was able to recall 3/3 words immediately after 1 minute and after 3 minutes on the second trial. He was able to remember presidents, Trump through Lind senior with hints. His mathematical skills were minimally impaired. His visuospatial function was also minimally impaired. SPEECH: He had no dysarthria. LANGUAGE: He had no aphasia. CRANIAL NERVE EXAMINATION: II: The visual willard were intact on confrontation testing. III, IV & : The external ocular movements were full and the pupils 3 mm in diameter, equal, round, regular, and reactive to light. V: The temporales, masseters, and pterygoids functioned normally. He complained of altered sensations over his left hemiface. VII: He had normal facial expressions with no facial asymmetry. VIII: He was able to hear well bilaterally and had no nystagmus. IX: The palate moved symmetrically on phonation. X: He had no hoarseness of voice. XI: The sternocleidomastoids and trapezii functioned normally. XII: The tongue was in the midline without any fasciculations or atrophy. MOTOR SYSTEM: The tone was normal in all four extremities. Examination of muscle mass revealed no focal wasting. Examination of power revealed grade 5/5 power on the right side. On the left side, he had approximately grade 4/5 power with a significant amount of give-away weakness, making accurate testing of power on the left side impossible. SENSORY EXAMINATION: He complained of altered sensations to light touch over his entire left hemibody. REFLEXES: 1+ and bilaterally symmetrical at the biceps, triceps, brachioradialis , and knees, 0 at both ankles. The plantar responses were flexor bilaterally. COORDINATION: He performed well on [id number] testing. He was unable to perform [id number]-tk-phad testing. STANCE & GAIT: He refused to stand and walk. Impression/Recommendations Diagnostic Impression 1. Mr. Melanie Steven is a 52-year-old, right-handed, black gentleman, who does have a past history of hypertension, cerebrovascular disease with three prior strokes, by chart diabetes mellitus, and coronary artery disease,who was hospitalized after he apparently lost consciousness and fell down on the floor. He has since also complained of increased left-sided weakness and altered sensation. 2. He feels unwell. He has had severe diarrhoea since last night. He complains of increased left hip discomfort and pain. He has noted no improvement in his left sided weakness. He also continues to have altered sensations over his left body.He denies any new neurologic symptoms. 3. On neurological examination, at this time, he does have mild problems with memory, higher cognitive function, and visuospatial function. He also complains of altered sensation over his left hemiface. He has give-away weakness over his entire left body and complains of altered sensations over the left hemibody. His deep tendon reflexes are globally diminished, but symmetrical. He refuses to stand and walk. 4. CT scan of the brain without contrast is benign. 5. The MRI of the brain reveals no acute or chronic infarcts. Mild old ischemic CVD is seen. 6. It is unclear as to why he had this episode of loss of consciousness. 7. It is also unclear as to why he is weak and has altered sensations over his left side. Imaging has failed to reveal acute or chronic pathology to explain his symptoms. Recommendations 1. Continue present management. 2. The patient should be mobilized with the help of physical therapy. 3. Consider psychiatric help to determine if there is a psychiatric component to his symptoms. Shabbir Butcher M.D., M.S.P.H. SHABBIR BUTCHER Dec 02, 2017 10:36
[2017-12-02 12:00] VITALS: BP 117/74
--- NOTE | 2017-12-02 15:13 | Pulmonology Progress Note ---
Assessment/Plan Problems: (1) Syncope (2) Diabetes mellitus (3) CVA (cerebral infarction) Assessment/Plan neuro and cardio evaluation appreciated symptomatic treatment check labs continue current meds Pain consult appreciated MRI reviewed pt walking to bathroom by himself med/surg Subjective ROS Limited/Unobtainable: No Constitutional: Reports: no symptoms HEENT: Repors: no symptoms Allergies: Coded Allergies: ACETAMINOPHEN (Unverified Allergy, Unknown, 04/02/15) IBUPROFEN (Unverified Allergy, Unknown, 12/04/14) KETOROLAC (Unverified Allergy, Unknown, 12/04/14) Objective Last 24 Hour Vital Signs Date Time Temp Pulse Resp B/P (MAP) Pulse Ox O2 Delivery O2 Flow Rate FiO2 12/02/17 12:00 98.7 81 18 117/74 99 Room Air 98.7 12/02/17 08:49 75 16 Room Air 21 12/02/17 08:16 110/70 12/02/17 08:00 98.3 79 18 107/74 99 Room Air 98.3 12/02/17 04:00 98.1 80 18 125/76 99 Room Air 98.1 12/02/17 00:00 98.3 74 16 107/70 95 Room Air 98.3 12/01/17 20:21 97.8 76 18 115/68 97 Room Air 97.8 12/01/17 19:18 77 16 Room Air 21 12/01/17 16:53 98.4 78 21 99/63 97 Room Air 98.4 12/01/17 16:53 97 Room Air 12/01/17 16:27 98.2 12/01/17 15:57 98.2 Intake and Output 12/01/17 12/02/17 19:00 07:00 Intake Total 400 ml 500 ml Output Total 700 ml Balance 400 ml -200 ml Intake Oral 500 ml Other 400 ml Output Urine Total 700 ml # Voids 3 # Bowel Movements 2 Objective General Appearance: WD/WN, no apparent distress Lines, tubes and drains: peripheral HEENT: normocephalic, atraumatic Neck: non-tender, normal alignment Respiratory/Chest: chest wall non-tender, lungs clear Breasts: no masses Cardiovascular/Chest: normal peripheral pulses Abdomen: normal bowel sounds, non tender Genitourinary/Rectal: normal genital exam Extremities: normal range of motion Skin Exam: normal pigmentation Current Medications Medications (Trade) Dose Ordered Sig/Dino Route PRN Reason Start Time Stop Time Status Last Admin Dose Admin Acetaminophen/ Hydrocodone Bitart ([place] 10/325) 1 tab Q6H PRN ORAL Moderate Pain (Pain Scale 4-6) 11/30/17 22:00 12/06/17 09:59 Al Hydroxide/Mg Hydroxide (Mylanta II) 30 ml Q6H PRN ORAL dyspepsia 11/30/17 22:30 12/27/17 10:29 Chlorhexidine Gluconate (Ros-Hex 2%) 1 applic DAILY@1999 TOPIC 12/01/17 20:00 12/28/17 19:59 Clonidine HCl (Catapres Tab) 0.1 mg Q4H PRN ORAL For High Blood Pressure 11/30/17 22:30 12/27/17 10:29 Dextrose (Dextrose 50%) STAT PRN IV Hypoglycemia 12/01/17 10:30 12/27/17 10:29 Diphenhydramine HCl (Benadryl) 25 mg Q6H PRN IVP Itching 12/01/17 02:00 12/27/17 13:59 Heparin Sodium (Porcine) (Heparin 5000 units/ml) 5,000 units EVERY 12 HOURS SUBQ 11/30/17 21:15 12/27/17 20:59 12/01/17 08:12 Hydromorphone HCl (Dilaudid) 1 mg Q4H PRN IVP Severe Pain (Pain Scale 7-10) 12/01/17 00:15 12/04/17 12:14 12/02/17 12:44 Insulin Aspart (NovoLOG) BEFORE MEALS AND HS SUBQ 12/01/17 11:30 12/31/17 11:29 Insulin Detemir (Levemir) 10 units DAILY SUBQ 12/01/17 09:00 12/31/17 08:59 Lisinopril (Zestril) 2.5 mg DAILY ORAL 12/01/17 09:00 12/30/17 08:59 12/02/17 08:16 Lorazepam (Ativan 2mg/ml 1ml) 0.5 mg Q4H PRN IV For Anxiety 11/30/17 22:30 12/04/17 10:29 Metformin HCl (Glucophage) 500 mg BID ORAL 12/01/17 09:00 12/30/17 08:59 12/02/17 08:16 Nateglinide (Starlix) 120 mg TIAC ORAL 12/01/17 08:00 12/31/17 07:59 12/01/17 16:37 Nitroglycerin (Ntg) 0.4 mg Q5M X 3 DOSES PRN SL Prn Chest Pain 11/30/17 21:15 12/27/17 10:29 Ondansetron HCl (Zofran) 4 mg Q6H PRN IVP Nausea & Vomiting 11/30/17 22:30 12/27/17 10:29 Polyethylene Glycol (Miralax) 17 gm HSPRN PRN ORAL Constipation 12/01/17 10:30 12/27/17 10:29 Promethazine HCl/ Codeine (Phenergan with Codeine) 5 ml Q4H PRN ORAL For Cough 11/30/17 22:30 12/27/17 10:29 Sitagliptin Phosphate (Januvia) 100 mg ACBREAKFAST ORAL 12/01/17 11:30 12/31/17 11:29 12/01/17 12:15 Temazepam (Restoril) 15 mg HSPRN PRN ORAL Insomnia 12/01/17 10:30 12/04/17 10:29 ANALY REESE Dec 02, 2017 15:13
[2017-12-02 15:56] VITALS: BP 121/73
--- NOTE | 2017-12-04 13:07 | Diagnostic Imaging Report ---
APPROVED REPORT CPT Code: 23286 Vascular Symptoms CVA/TIA: Doppler Spectral Velocity Analysis RightLeft RIGHT SIDE: ECA - Imaging reveals no significant plaque in the external carotid artery. arteries. The Doppler signal indicates the degree of stenosis is minimal (20%) in the internal carotid, and (20%) in the common carotid arteries. VERTEBRAL - The vertebral artery is patent, without evidence of stenosis or steal. LEFT SIDE: ECA - Imaging reveals no significant plaque in the external carotid artery. arteries. The Doppler signal indicates the degree of stenosis is mild (30%) in the internal carotid, and (20%) in the common carotid arteries. VERTEBRAL - The vertebral artery is patent, without evidence of stenosis or steal.
--- NOTE | 2017-12-05 09:32 | Discharge Summary ---
Discharge Summary Hospital Course Date of Admission Nov 27, 2017 at 05:00 Date of Discharge Dec 02, 2017 at 17:10 Admitting Diagnosis syncope HPI Melanie Steven is a 52 year old male who was admitted on Nov 27, 2017 at 05:00 for Syncope Hospital Course dc summary #[id number] Discharge Condition Upon Discharge: stable Discharge Disposition Patient was discharged to Home (01) Discharge Diagnoses: Discharge Instructions Discharge Instructions Special Instructions I have been assigned to complete a D/C Summary on this account. I was not involved in the patient management Crystal Bhakta NP ([place]) Dec 05, 2017 09:32
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
== END 2017-12-02 17:10 | disposition home or self-care (01) | DRG 204 ==
LOC: EMR 04:08 → 2E 05:00 → EDBEDREQ 07:21 → 3E 11-30 21:54
PROC: 06HM33Z Insertion of Infusion Device into Right Femoral Vein, Percutaneous Approach (ICD-10-PCS; principal; 2017-11-27)
DX: R55 Syncope and collapse (principal); E11.65 Type 2 diabetes mellitus with hyperglycemia; E87.1 Hypo-osmolality and hyponatremia; I48.0 Paroxysmal atrial fibrillation; G62.9 Polyneuropathy, unspecified; S70.02XA Contusion of left hip, initial encounter; E86.0 Dehydration; M10.9 Gout, unspecified; F14.21 Cocaine dependence, in remission; W19.XXXA Unspecified fall, initial encounter; Y92.000 Kitchen of unspecified non-institutional (private) residence as the place of occurrence of the external cause; Z88.6 Allergy status to analgesic agent; M51.16 Intervertebral disc disorders with radiculopathy, lumbar region; M47.896 Other spondylosis, lumbar region; J45.909 Unspecified asthma, uncomplicated; I25.10 Atherosclerotic heart disease of native coronary artery without angina pectoris; F17.200 Nicotine dependence, unspecified, uncomplicated; Z86.718 Personal history of other venous thrombosis and embolism; Z79.84 Long term (current) use of oral hypoglycemic drugs; Z95.5 Presence of coronary angioplasty implant and graft; I69.354 Hemiplegia and hemiparesis following cerebral infarction affecting left non-dominant side
CPT/HCPCS: 36415; 70450; 70551; 71045; 72170; 80053; 80061; 82140; 82533; 82550; 83036; 83735; 83880; 84100; 84443; 84484; 85025; 85610; 85651; 85730; 86140; 93005; 93306; 93880; 93970; 94664; 99284; J1815; J2405; S5561

== ENCOUNTER 2017-12-30 10:02 | Emergency (ER) | payer MEDICAID ==
[~2017-12-30] VITALS: Ht 172.7 cm; Wt 69.4 kg
[2017-12-30 10:33] VITALS: BP 138/99
--- NOTE | 2017-12-31 06:52 | Emergency Room Report ---
History of Present Illness General Chief Complaint: General Complaint Source: Patient Present Illness HPI 52-year-old male presents ED complaining of left-sided hip pain and weakness status post fall today. Patient states he has history of CVA. States he's been feeling increasingly weak over the last several hours. Pain is throbbing, 8 out of 10, nonradiating. Denies chest pain or shortness of breath. No other aggravating or relieving factors. Denies any other associated symptoms Allergies: Coded Allergies: ACETAMINOPHEN (Unverified Allergy, Unknown, 04/02/15) IBUPROFEN (Unverified Allergy, Unknown, 12/04/14) KETOROLAC (Unverified Allergy, Unknown, 12/04/14) Patient History Past Medical History: HTN, asthma, CVA/TIA Past Surgical History: none Pertinent Family History: none Social History: Denies: smoking, alcohol use, drug use Immunizations: UTD Reviewed Nursing Documentation: PMH: Agreed; PSxH: Agreed Nursing Documentation-PMH Past Medical History: No History, Except For Hx Cardiac Problems: No Hx Hypertension: Yes Hx Pacemaker: No Hx Asthma: Yes Hx COPD: No Hx Diabetes: No Hx Cancer: No Hx Gastrointestinal Problems: No Hx Dialysis: No Hx Neurological Problems: No Hx Cerebrovascular Accident: Yes - 2-3 YRS AGO Hx Seizures: No Hx Weakness: Yes - right sided Review of Systems All Other Systems: negative except mentioned in HPI Physical Exam Vital Signs Date Time Temp Pulse Resp B/P (MAP) Pulse Ox O2 Delivery O2 Flow Rate FiO2 12/30/17 10:07 97.6 80 18 149/92 98 Room Air 97.5 Sp02 EP Interpretation: reviewed, normal General Appearance: no apparent distress, alert, GCS 15, non-toxic Head: normocephalic, atraumatic Eyes: bilateral eye normal inspection, bilateral eye PERRL ENT: hearing grossly normal, normal pharynx, no angioedema, normal voice Neck: full range of motion, supple/symm/no masses Respiratory: chest non-tender, lungs clear, normal breath sounds, speaking full sentences Cardiovascular #1: regular rate, rhythm, no edema Cardiovascular #2: 2+ carotid (R), 2+ carotid (L), 2+ radial (R), 2+ radial (L) , 2+ dorsalis pedis (R), 2+ dorsalis pedis (L) Gastrointestinal: normal bowel sounds, non tender, soft, non-distended, no guarding, no rebound Rectal: deferred Genitourinary: normal inspection, no CVA tenderness Musculoskeletal: back normal, gait/station normal, normal range of motion, tender - L hip Neurologic: alert, oriented x3, responsive, functional director III-XII nml as tested, motor strength/tone normal, sensory intact, speech normal Psychiatric: judgement/insight normal, memory normal, mood/affect normal, no suicidal/homicidal ideation Reflexes: 3+ bicep (R), 3+ bicep (L), 3+ tricep (R), 3+ tricep (L), 3+ knee (R) , 3+ knee (L) Skin: normal color, no rash, warm/dry, well hydrated Lymphatic: no adenopathy Medical Decision Making Diagnostic Impression: Primary Impression: Left-sided muscle weakness ER Course 52-year-old male presents ED complaining of left hip pain, secondary to fall. Complaining of weakness Differentialfracture, contusion, dislocation Patient placed on stretcher. After initial history physical exam reveals a middle-aged male in no acute distress. There is some focal tenderness to left hip. No deformity. No crepitus. Full range of motion. No slurred speech or facial droop. Cranial nerves II through XII grossly intact. Patient is well-known to [facility] Has been her multiple times in the past for similar presentation. I saw this patient earlier this year. Concerning for CVA. I gave patient TPA and transferred him to [facility]. Patient returned in November with similar presentation of stroke symptoms. ED physician at that time obtain records from [facility] and noted that workup was unremarkable. Patient was admitted here. Had full neurological workup including MRI which was all negative Neurologic differential included conversion disorder versus residual left-sided weakness but no acute CVA I see no reason to repeat workup at this time. I explained to the patient that I will obtain imaging studies of his hip and if are negative patient will be subsequently discharged. Patient became upset and states he will like to leave. Understands the risks of leaving. Patient has competency to make his own decisions. Signed AMA form. Patient observed leaving ED with no gait disturbance and no evidence of weakness Diagnosisleft sided muscle weakness patient leaves AMA in stable condition Last Vital Signs Date Time Temp Pulse Resp B/P (MAP) Pulse Ox O2 Delivery O2 Flow Rate FiO2 12/30/17 10:33 98.1 76 16 138/99 100 Room Air 97.5 Status: improved Disposition: AGAINST MEDICAL ADVICE Condition: Stable Referrals: NON PHYSICIAN (PCP) LINDA DE LA PAZ M.D. Dec 31, 2017 06:52
== END 2017-12-30 10:39 | disposition left against medical advice (07) ==
LOC: EMR 10:30
DX: M62.81 Muscle weakness (generalized) (principal); M25.552 Pain in left hip; I10 Essential (primary) hypertension; J45.909 Unspecified asthma, uncomplicated; Z86.73 Personal history of transient ischemic attack (TIA), and cerebral infarction without residual deficits
CPT/HCPCS: 99283

== ENCOUNTER 2018-04-14 15:57 | Emergency (ER) | payer MEDICAID ==
[~2018-04-14] VITALS: Ht 172.7 cm; Wt 69.9 kg
[2018-04-14] MEDS ORDERED: NKM (16:06)
--- NOTE | 2018-04-14 17:31 | Emergency Room Report ---
History of Present Illness General Chief Complaint: Lower Extremity Injury Source: Medical Record Present Illness HPI 52-year-old male presents emergency department complaining of 8 out of 10 in severity pain to the left hip and his left knee status post mechanical fall which caused him to land on some bricks. Patient reports hitting his head, and now has MATHIS. denies loss of consciousness, N/V or weakness. Patient denies midline neck or back pain. Denies numbness tingling or loss of sensation or gross motor movements of the extremities, incontinence of bowel or bladder. Denies CP, Palpitations, LOC, AMS, dizziness, Changes in Vision, weakness or a sudden severe headache. Pt. requesting Morphine shot. Allergies: Coded Allergies: ACETAMINOPHEN (Unverified Allergy, Unknown, 04/02/15) IBUPROFEN (Unverified Allergy, Unknown, 12/04/14) KETOROLAC (Unverified Allergy, Unknown, 12/04/14) Patient History Past Medical History: see triage record Past Surgical History: none Pertinent Family History: none Reviewed Nursing Documentation: PMH: Agreed; PSxH: Agreed Nursing Documentation-PMH Hx Cardiac Problems: No Hx Hypertension: Yes Hx Pacemaker: No Hx Asthma: Yes Hx COPD: No Hx Diabetes: No Hx Cancer: No Hx Gastrointestinal Problems: No Hx Dialysis: No Hx Neurological Problems: No Hx Cerebrovascular Accident: Yes - 2-3 YRS AGO Hx Seizures: No Hx Weakness: Yes - right sided Review of Systems All Other Systems: negative except mentioned in HPI Physical Exam Vital Signs Date Time Temp Pulse Resp B/P (MAP) Pulse Ox O2 Delivery O2 Flow Rate FiO2 04/14/18 16:03 98.1 85 16 96/63 96 Room Air 98.1 Sp02 EP Interpretation: reviewed, normal General Appearance: no apparent distress - ambulatory with NAD, alert, GCS 15, non-toxic Head: normocephalic, atraumatic Eyes: bilateral eye normal inspection, bilateral eye PERRL ENT: hearing grossly normal, normal voice Neck: full range of motion, no bony tend Respiratory: lungs clear, normal breath sounds, speaking full sentences Cardiovascular #1: regular rate, rhythm, no edema, normal capillary refill Cardiovascular #2: 2+ radial (R), 2+ radial (L), 2+ dorsalis pedis (L) - post. tibial Gastrointestinal: non tender, soft Musculoskeletal: back normal, gait/station normal, normal range of motion, tender - lateral left hip, FROM , no clicking. no leg length discrepancy Neurologic: alert, oriented x3, responsive, motor strength/tone normal, sensory intact, normal gait, speech normal, grossly normal Psychiatric: judgement/insight normal Skin: normal color, no rash, warm/dry, well hydrated, other - no visible bruises Medical Decision Making PA Attestation Dr Ogden is my supervising Physician whom patient management has been discussed with. Diagnostic Impression: Primary Impression: Hip pain, left Additional Impression: Fall Qualified Codes: W19.XXXA - Unspecified fall, initial encounter ER Course 52-year-old male presents emergency department complaining of 8 out of 10 in severity pain to the left hip and his left knee status post mechanical fall which caused him to land on some bricks. Patient reports hitting his head, and now has MATHIS. denies loss of consciousness, N/V or weakness. Patient denies midline neck or back pain. Denies numbness tingling or loss of sensation or gross motor movements of the extremities, incontinence of bowel or bladder. Denies CP, Palpitations, LOC, AMS, dizziness, Changes in Vision, weakness or a sudden severe headache. Pt. requesting Morphine shot. Ddx considered but are not limited to Fracture, dislocation, contusion, Sprain/ Strain/Spasm, ICH, subdural hematoma, spinal chord injury, arthritis just to name a few. . Vital signs: are WNL, pt. is afebrile H&PE are most consistent with musculoskeletal injury will perform imaging to r/ o fractures/dislocations. -No focal neurological deficits. No evidence of abdominal injury, rib fractures or spinal injury. Patient does habitually asking for injection narcotic pain medication.. Review of this patient's charts shows that he has presented to the emergency department on several previous occasions with similar history of present illness story. ORDERS: - CT Head and Left HIP No Contrast: WNL ED INTERVENTIONS: - He was offered oral pain medications however he declined and states that he wants injection pain medication and to be moved into a room. DISCHARGE: At this time pt. is stable for d/c to home. Will provide printed patient care instructions, and any necessary prescriptions. Care plan and follow up instructions have been discussed with the patient prior to discharge. CT/MRI/US Diagnostic Results CT/MRI/US Diagnostic Results #1: Imaging Test Ordered: CT Left HIP No Contrast Impression "IMPRESSION: No acute fracture or dislocation. Incidental findings as above- degenerative changes." Per official radiology report- Please see report for specific details. CT/MRI/US Diagnostic Results #2: Imaging Test Ordered: CT Head No Contrast Impression "IMPRESSION: No evidence of acute intracranial hemorrhage, mass effect or cortical edema. No skull fracture" Per official radiology report- Please see report for specific details. Last Vital Signs Date Time Temp Pulse Resp B/P (MAP) Pulse Ox O2 Delivery O2 Flow Rate FiO2 04/14/18 16:03 98.1 85 16 96/63 96 Room Air 98.1 Disposition: HOME, SELF-CARE Condition: Stable Referrals: NOT CHOSEN IPA/MD,REFERRING (PCP) Patient Instructions: Contusion, Iniz-os-Tdky Additional Instructions: Take medications as directed. Follow up with a Primary Care Provider in 3-5 days, even if your symptoms have resolved. --Please review list of primary care clinics, if you do not already have a primary care provider Return sooner to ED if new symptoms occur, or current symptoms become worse. - Please note that this Emergency Department Report was dictated using [employer] charmer technology software, occasionally this can lead to erroneous entry secondary to interpretation by the dictation equipment. Corinne Carroll Apr 14, 2018 17:31
[2018-04-14 17:37] VITALS: BP 96/63
--- NOTE | 2018-04-15 08:11 | Diagnostic Imaging Report ---
Indication: Pain status post fall Technique: Continuous helical CT scanning of the head was performed utilizing automated exposure control without intravenous contrast material. Axial and coronal reconstructions were obtained. Comparison: MRI of the brain 11/29/2017; CT of the head 11/27/2017 and 11/15/2017 CT dose: Total DLP 1411.27 mGycm; CTDI vol 70.38 mGy Findings: There is no acute intracranial hemorrhage, mass effect or cortical edema. The ventricles, cisterns and sulci are stable. There is no midline shift. Visualized mastoid air cells are clear. Mild mucosal thickening in some ethmoid air cells. IMPRESSION: No evidence of acute intracranial hemorrhage, mass effect or cortical edema. No skull fracture. Mild paranasal sinus disease. This corresponds with the statrad preliminary report. The CT scanner at [facility] is accredited by the [employer] and the scans are performed using protocols designed to limit radiation exposure to as low as reasonably achievable to attain images of sufficient resolution adequate for diagnostic evaluation.
--- NOTE | 2018-04-15 08:29 | Diagnostic Imaging Report ---
Indication: Pain status post fall Technique: CT of the osseous pelvis/left hip was performed utilizing automated exposure control without intravenous contrast material. Axial and coronal images were generated. CT dose: Total DLP 278.54 mGycm; CTDI vol 9.88 mGy Comparison: 04/23/2016 Findings: No acute fracture is identified. There is mild degenerative change of the bilateral hips with some small marginal osteophytes. Sacroiliac joints and symphysis pubis are preserved. Mild degenerative change of the lumbosacral spine is partially visualized. There are small presumed bone islands in the iliac bones, similar to prior exam. No significant soft tissue contusion/hematoma. Atherosclerotic calcifications are noted in the iliac arteries, which appear normal in caliber. The bladder is mildly distended but otherwise unremarkable. Prostate may be mildly enlarged. IMPRESSION: No acute fracture or dislocation. Incidental findings as above. This corresponds with the statrad preliminary report. The CT scanner at [facility] is accredited by the [employer] and the scans are performed using protocols designed to limit radiation exposure to as low as reasonably achievable to attain images of sufficient resolution adequate for diagnostic evaluation.
== END 2018-04-14 17:38 | disposition home or self-care (01) ==
LOC: EMR 17:15
DX: M25.552 Pain in left hip (principal); Z86.73 Personal history of transient ischemic attack (TIA), and cerebral infarction without residual deficits; I10 Essential (primary) hypertension; J45.909 Unspecified asthma, uncomplicated; Z88.6 Allergy status to analgesic agent; W01.198A Fall on same level from slipping, tripping and stumbling with subsequent striking against other object, initial encounter; Y92.9 Unspecified place or not applicable
CPT/HCPCS: 70450; 99284

== ENCOUNTER 2018-04-17 18:32 | Emergency (ER) | payer MEDICAID ==
[~2018-04-17] VITALS: Ht 172.7 cm; Wt 69.9 kg
[2018-04-17 19:15] VITALS: BP 117/68
--- NOTE | 2018-04-17 20:24 | Emergency Room Report ---
History of Present Illness General Chief Complaint: General Complaint Source: Medical Record Present Illness HPI 52-year-old male patient presents ER complaining of left hip pain and left sided weakness. Reports "I think I had a stroke". patient requesting admission for MRI. Reports had symptoms for the past 2 days. Reports was previously listed in ER 2 days ago for similar symptoms. Patient has previously been seen in this ER multiple times with similar complaints. Denies new or worsening of symptoms. Reports able ambulate. Denies fever, chest pain, shortness of breath, abdominal pain. Allergies: Coded Allergies: ACETAMINOPHEN (Unverified Allergy, Unknown, 04/02/15) IBUPROFEN (Unverified Allergy, Unknown, 12/04/14) KETOROLAC (Unverified Allergy, Unknown, 12/04/14) Patient History Past Medical History: see triage record Reviewed Nursing Documentation: PMH: Agreed; PSxH: Agreed Nursing Documentation-PMH Past Medical History: No History, Except For Hx Cardiac Problems: No Hx Hypertension: Yes Hx Pacemaker: No Hx Asthma: Yes Hx COPD: No Hx Diabetes: Yes Hx Cancer: No Hx Gastrointestinal Problems: No Hx Dialysis: No Hx Neurological Problems: No Hx Cerebrovascular Accident: Yes - 2-3 YRS AGO Hx Seizures: No Hx Weakness: Yes - right sided Review of Systems All Other Systems: negative except mentioned in HPI Physical Exam Vital Signs Date Time Temp Pulse Resp B/P (MAP) Pulse Ox O2 Delivery O2 Flow Rate FiO2 04/17/18 18:46 98.2 79 15 117/68 99 Room Air 98.2 Sp02 EP Interpretation: reviewed, normal General Appearance: well appearing, no apparent distress, alert, GCS 15, non- toxic Head: normocephalic, atraumatic Eyes: bilateral eye normal inspection, bilateral eye PERRL ENT: hearing grossly normal, normal pharynx, no angioedema, normal voice, uvula midline, moist mucus membranes Neck: full range of motion Respiratory: lungs clear, normal breath sounds, no rhonchi, no respiratory distress, no accessory muscle use, no wheezing, speaking full sentences Cardiovascular #1: regular rate, rhythm, no edema Gastrointestinal: non tender, soft, no mass, non-distended, no guarding, no rebound Musculoskeletal: back normal, digits/nails normal, gait/station normal, normal range of motion, non-tender Neurologic: alert, oriented x3, responsive, web user experience strategist III-XII nml as tested, motor strength/tone normal, SLR negative, sensory intact, cerebellar normal, normal gait, other - no facial droop, able to furrow brow Psychiatric: mood/affect normal Reflexes: 2+ tricep (R), 2+ tricep (L), 2+ knee (R), 2+ knee (L) Skin: no rash Medical Decision Making PA Attestation Dr. Lindsay is my supervising Physician whom patient management has been discussed with. Diagnostic Impression: Primary Impression: Left-sided muscle weakness ER Course Pt. presents to the ED c/o hip pain and left-sided weakness. multiple differentials considered. Vital signs: are WNL, pt. is afebrile ER COURSE: patient resting in bed in no acute distress. Mild focal tenderness to left hip. No deformity no crepitus, full range of motion. Cranial nerves grossly intact as tested, but negative straight leg test bilaterally, no slurred speech or facial droop noted. Patient previously seen and evaluated in ER for similar symptoms. all labs and test performed at that time were unremarkable. Patient seen in ER 3 days ago with similar hip complaints, CTof left hip and head were performed at that time and were negative. Patient denies recent trauma, do not believe the patient requires further imaging or labs at this time. No focal neuro deficits, patient ambulating with steady gait without evidence of weakness while in the ER. patient presents seen in ER for similar symptoms. While interviewing patient patient became loud and agitated, patient seen and evaluated by Dr. Lindsay and patient again became loud and agitated. Patient eloped. DISCHARGE: Patient eloped. Patient is resting comfortably, in no acute distress, nontoxic appearing, talking without difficulty. Patient to take medications as instructed Will provide with patient care instructions and any necessary prescriptions. Care plan and follow-up instructions provided. Patient instructed to follow-up with primary care provider in 3 - 5 days. Patient questions asked and answered. Patient reports understanding and agreement to treatment plan. ER precautions given. Patient instructed to return to ER immediately for any new or worsening of symptoms including but not limited to increasing SOB, persistent fever, chest pain, intractable vomiting. - Please note that this Emergency Department Report was dictated using [employer] splicer assistant technology software, occasionally this can lead to erroneous entry secondary to interpretation by the dictation equipment. Last Vital Signs Date Time Temp Pulse Resp B/P (MAP) Pulse Ox O2 Delivery O2 Flow Rate FiO2 04/17/18 19:15 98.2 15 117/68 99 Room Air 98.2 04/17/18 18:46 79 Disposition: ELOPED Condition: Stable Additional Instructions: Followup with primary care provider in 3 -5 days. Take medications as directed. Patient questions asked and answered. ER precautions given, patient instructed to return to ER immediately for any new or worsening of symptoms. Garrick Vasques Apr 17, 2018 20:24
== END 2018-04-17 19:20 | disposition left against medical advice (07) ==
LOC: EMR 19:20
DX: M25.552 Pain in left hip (principal); R53.1 Weakness; I10 Essential (primary) hypertension; J45.909 Unspecified asthma, uncomplicated; E11.9 Type 2 diabetes mellitus without complications; Z86.73 Personal history of transient ischemic attack (TIA), and cerebral infarction without residual deficits; Z88.6 Allergy status to analgesic agent
CPT/HCPCS: 99282